=== PATIENT | female | born 1985 | race Hispanic/Latino ===

== ENCOUNTER 2019-04-03 17:00 | Emergency (ER) | payer OTHER, SELFPAY ==
[2019-04-03 17:31] LABS: Urine Blood 1+ (NEG); Urine Glucose NEGATIVE (NEG); Urine Protein NEGATIVE (NEG); Urine Specific Gravity 1.025 (1.005-1.030); Urine pH 6.5 (5.0-7.0)
[2019-04-03] MEDS ORDERED: ONDANSETRON 4 MG/2 ML VIAL ONE (17:52)
[2019-04-03] MEDS ORDERED: MORPHINE 4 MG/ML SYR ONE (17:52)
[2019-04-03] MEDS ORDERED: NA CHLORIDE 0.9% 1,000 ML ONE (17:52)
[2019-04-03 18:13] LABS: Absolute Lymphocytes (CBC) 1.5 K/uL (0.7-4.9); Basophils % 0.7 % (0-1.3); Hematocrit 40.6 % (36.0-45.0); Lymphocytes % 28.3 % (15.3-44.8); MPV 9.3 fL (7.6-11.3); RBC Red Blood Cell Count 4.83 M/uL (3.86-4.86)
[2019-04-03 18:35] LABS: ALT/SGPT 75 U/L (12-78); AST/SGOT 46 U/L (15-37); Albumin 3.9 g/dL (3.4-5.0); Alkaline Phosphatase 103 U/L (45-117); BUN Blood Urea Nitrogen 11 mg/dL (7-18); Bicarbonate 28 mmol/L (21-32); Bilirubin Direct 0.1 mg/dL (0-0.2); Bilirubin Total 0.4 mg/dL (0.2-1.0); Glucose Level 88 mg/dL (74-106); Lipase 178 U/L (73-393); Potassium 3.6 mmol/L (3.5-5.1); Protein, Total 8.4 g/dL (6.4-8.2); Sodium Level 140 mmol/L (136-145)
--- NOTE | 2019-04-03 20:26 | RAD REPORT ---
EXAM DESCRIPTION: CTAbdomen Pelvis W Contrast - 04/03/2019 8:18 pm CLINICAL HISTORY: Abdominal pain. abdominal pain COMPARISON: No comparisons TECHNIQUE: Biphasic CT imaging of the abdomen and pelvis was performed with 100 ml non-ionic IV cont rast. All CT scans are performed using dose optimization technique as appropriate and may include automated exposure control or mA/KV adjustment according to patient size. FINDINGS: The lung bases are clear. The liver is diffusely fatty. The spleen, pancreas, adrenal glands and kidneys are within normal limi ts. No bowel obstruction, free air, free fluid or abscess. The appendix is normal. No evidence of signi ficant lymphadenopathy. No suspicious bony findings. IMPRESSION: No acute intra-abdominal or pelvic finding.
--- NOTE | 2019-04-03 20:41 | EDPHYS ---
Physician Documentation [facility] Name: Patricia Quintero Age: 34 yrs Sex: Female : 1985 Arrival Date: 04/03/2019 Time: 17:02 Bed 15 Private MD: ED Physician Urbano Galvan HPI: 04/03 17:38 This 34 yrs old Female presents to ER via Ambulatory with complaints of jmm Abdominal Pain. 17:38 The patient presents with abdominal pain. Onset: The symptoms/episode began/occurred 1 jmm day(s) ago. The symptoms do not radiate. Associated signs and symptoms: Pertinent negatives: fever. The symptoms are described as achy, sharp. This is a 34 year old female with no chronic medical conditions that presents to the ED with complaints of right sided abdominal pain. Symptoms began yesterday. Denies fever, denies vomiting, denies diarrhea. . 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 - Social history:: Smoking status: Patient/guardian denies using tobacco. - Ebola Screening: : No symptoms or risks identified at this time. ROS: 17:38 Constitutional: Negative for fever, chills, and weight loss, Cardiovascular: Negative jmm for chest pain, palpitations, and edema, Respiratory: Negative for shortness of breath, cough, wheezing, and pleuritic chest pain. 17:38 Abdomen/GI: Positive for abdominal pain. 17:38 All other systems are negative. Exam: 17:38 Head/Face: atraumatic. Eyes: EOMI, no conjunctival erythema appreciated ENT: Moist jmm Mucus Membranes Neck: Trachea midline, Supple Chest/axilla: Normal chest wall appearance and motion. Cardiovascular: Regular rate and rhythm. No edema appreciated Respiratory: Normal respirations, no respiratory distress appreciated 17:38 Constitutional: The patient appears in no acute distress, alert, awake. 17:38 Abdomen/GI: Inspection: abdomen appears normal, Bowel sounds: normal, Palpation: soft, moderate abdominal tenderness, in the right lower quadrant. 17:38 Musculoskeletal/extremity: ROM: intact in all extremities. 17:38 Skin: Appearance: Color: normal in color. 17:38 Neuro: Orientation: is normal, Mentation: is normal, Memory: is normal. 17:38 Psych: Behavior/mood is pleasant, cooperative. Vital Signs: 17:08 BP 119 / 77; Pulse 92; Resp 16; Temp 98.4; Pulse Ox 100% on R/A; Weight 68.04 kg; la1 18:55 BP 109 / 71; Pulse 88; Resp 17 S; Pulse Ox 99% on R/A; ca1 19:30 BP 117 / 88; Pulse 79; Resp 18; Pulse Ox 97% on R/A; wh 20:57 BP 108 / 70; Pulse 70; Resp 18; Pulse Ox 98% on R/A; wh MDM: 17:38 Patient medically screened[address] [facility] 20:39 Data reviewed: vital signs, nurses notes. Counseling: I had a detailed discussion with elder the patient and/or guardian regarding: the historical points, exam findings, and any diagnostic results supporting the discharge/admit diagnosis, lab results, radiology results, the need for outpatient follow up, to return to the emergency department if symptoms worsen or persist or if there are any questions or concerns that arise at home. ED course: Pain is relieved in the ED. Labs unremarkable. Ct imaging negative for an acute process. Patient advised to follow up with GI and otherwise given strict return precautions. Patient understood and agrees with the plan of care. . 04/03 17:21 Order name: Urine Dipstick--Ancillary (enter results); Complete Time: 17:42 nj 04/03 17:21 Order name: Urine --Ancillary (enter results); Complete Time: 17:42 nj 04/03 17:41 Order name: Basic Metabolic Panel; Complete Time: 18:[address] [facility] 04/03 17:41 Order name: CBC with Diff; Complete Time: 18:[address] [facility] 04/03 17:41 Order name: Creatinine for Radiology; Complete Time: 18:[address] [facility] 04/03 17:41 Order name: Hepatic Function; Complete Time: 18:[address] [facility] 04/03 17:41 Order name: Lipase; Complete Time: 18:[address] [facility] 04/03 17:41 Order name: IV Saline Lock; Complete Time: 17:[address] [facility] 04/03 17:41 Order name: Labs collected and sent; Complete Time: 18:[address] [facility] 04/03 18:43 Order name: CT Abd/Pelvis - IV Contrast Only; Complete Time: 20:[address] [facility] Administered Medications: 17:56 Drug: NS 0.9% 1000 ml Route: IV; Rate: 1 bolus; Site: right antecubital; hb 21:00 Follow up: Response: No adverse reaction; IV Status: Completed infusion 17:56 Drug: morphine 4 mg Route: IVP; Site: right antecubital; hb 21:00 Follow up: Response: No adverse reaction; Pain is decreased; RASS: Alert and Calm (0) 17:56 Drug: Zofran 4 mg Route: IVP; Site: right antecubital; hb 21:01 Follow up: Response: No adverse reaction; Nausea is decreased Disposition: 04/04 07:11 Co-signature as Attending Physician, Urbano Galvan MD. rn Disposition: 04/03/19 20:40 Discharged to Home. Impression: Generalized abdominal pain. - Condition is Stable. - Discharge Instructions: Abdominal Pain, Adult. - Prescriptions for Ultracet 37.5- 325 mg Oral Tablet - take 1 tablet by ORAL route every 6 hours - for up to 5 days; do not exceed 8 tablets per day.; 20 tablet. - Medication Reconciliation Form, Thank You Letter, Antibiotic Education, Prescription Opioid Use form. - Follow up: Kaycee Malhotra MD; When: 2 - 3 days; Reason: Recheck today's complaints, Continuance of care, Re-evaluation by your physician. Signatures: Dispatcher [employer] EDMS Ivan Jones PA PA jmm Nieto, Roman, MD MD rn Attema, Lee RN ALEXANDREA [facility] Awilda Lo RN RN Caren Calero Corrections: (The following items were deleted from the chart) 04/03 21:01 20:40 04/03/2019 20:40 Discharged to Home. Impression: Generalized abdominal pain. Condition is Stable. Forms are Medication Reconciliation Form, Thank You Letter, Antibiotic Education, Prescription Opioid Use. Follow up: Kaycee Malhotra; When: 2 - 3 days; Reason: Recheck today's complaints, Continuance of care, Re-evaluation by your physician. elder
--- NOTE | 2019-04-03 20:41 | ER ---
Nurse's Notes [facility] Name: Patricia Quintero Age: 34 yrs Sex: Female : 1985 Arrival Date: 04/03/2019 Time: 17:02 Bed 15 Private MD: Diagnosis: Generalized abdominal pain Presentation: 04/03 17:09 Presenting complaint: Patient states: abd pain and bloating since yesterday. Transition la1 of care: patient was not received from another setting of care. Onset of symptoms was April 03, 2019. Risk Assessment: Do you want to hurt yourself or someone else? Patient reports no desire to harm self or others. Initial Sepsis Screen: Does the patient meet any 2 criteria? No. Patient's initial sepsis screen is negative. Does the patient have a suspected source of infection? No. Patient's initial sepsis screen is negative. Care prior to arrival: None. 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 - Social history:: Smoking status: Patient/guardian denies using tobacco. - Ebola Screening: : No symptoms or risks identified at this time. Screenin:15 Abuse screen: Denies threats or abuse. Denies injuries from another. Nutritional ca1 screening: No deficits noted. Tuberculosis screening: No symptoms or risk factors identified. Fall Risk None identified. Assessment: 17:15 General: Appears in no apparent distress. comfortable, Behavior is calm, cooperative, ca1 appropriate for age. Pain: Complains of pain in suprapubic area, right lower quadrant and left lower quadrant Pain currently is 8 out of 10 on a pain scale. Quality of pain is described as crampy, Pain began 1 day ago. Is intermittent. Neuro: Level of Consciousness is awake, alert, obeys commands, Oriented to person, place, time, situation, Appropriate for age. Cardiovascular: Heart tones S1 S2 present Capillary refill < 3 seconds Patient's skin is warm and dry. Respiratory: Airway is patent Respiratory effort is even, unlabored, Respiratory pattern is regular, symmetrical, Breath sounds are clear bilaterally. GI: Abdomen is round non-distended, Bowel sounds present X 4 quads. Abd is soft X 4 quads Abdomen is tender to palpation in right upper quadrant, left upper quadrant, right lower quadrant and left lower quadrant Patient currently denies nausea. : No deficits noted. No signs and/or symptoms were reported regarding the genitourinary system. EENT: No deficits noted. No signs and/or symptoms were reported regarding the EENT system. Derm: Skin is intact, is healthy with good turgor, Skin is pink, warm \T\ dry. Musculoskeletal: Circulation, motion, and sensation intact. Capillary refill < 3 seconds, Range of motion: intact in all extremities. 18:15 Reassessment: Patient appears in no apparent distress at this time. Patient and/or ca1 family updated on plan of care and expected duration. Pain level reassessed. Patient is alert, oriented x 3, equal unlabored respirations, skin warm/dry/pink. 18:55 Reassessment: Patient appears in no apparent distress at this time. Patient and/or ca1 family updated on plan of care and expected duration. Pain level reassessed. Patient is alert, oriented x 3, equal unlabored respirations, skin warm/dry/pink. 19:30 Reassessment: Patient appears in no apparent distress at this time. Patient and/or wh family updated on plan of care and expected duration. Pain level reassessed. Patient is alert, oriented x 3, equal unlabored respirations, skin warm/dry/pink. 20:56 Reassessment: Patient appears in no apparent distress at this time. No changes from previously documented assessment. Patient and/or family updated on plan of care and expected duration. Pain level reassessed. Patient is alert, oriented x 3, equal unlabored respirations, skin warm/dry/pink. Patient denies pain at this time. Patient states feeling better. Patient states symptoms have improved. Vital Signs: 17:08 BP 119 / 77; Pulse 92; Resp 16; Temp 98.4; Pulse Ox 100% on R/A; Weight 68.04 kg; la1 18:55 BP 109 / 71; Pulse 88; Resp 17 S; Pulse Ox 99% on R/A; ca1 19:30 BP 117 / 88; Pulse 79; Resp 18; Pulse Ox 97% on R/A; wh 20:57 BP 108 / 70; Pulse 70; Resp 18; Pulse Ox 98% on R/A; ED Course: 17:02 Patient arrived in ED. as 17:07 Arm band placed on left wrist. la1 17:09 Triage completed. la1 17:12 Yumiko Yusuf, RN is Primary Nurse. ca1 17:13 Ivan Jones PA is PHCP. jmm 17:13 Urbano Galvan MD is Attending Physician. m 17:15 Patient has correct armband on for positive identification. Bed in low position. Call ca1 light in reach. Side rails up X 1. Pulse ox on. NIBP on. Warm blanket given. 17:15 No provider procedures requiring assistance completed. ca1 18:09 Initial lab(s) drawn, by me, sent to lab. Inserted saline lock: 22 gauge in right mb4 antecubital area, using aseptic technique. Blood collected. 20:18 CT Abd/Pelvis - IV Contrast Only In Process Unspecified. EDMS 20:40 Kaycee Malhotra MD is Referral Physician. [facility] 20:48 Caren Calero is Primary Nurse. 21:00 IV discontinued, intact, bleeding controlled, No redness/swelling at site. Administered Medications: 17:56 Drug: NS 0.9% 1000 ml Route: IV; Rate: 1 bolus; Site: right antecubital; hb 21:00 Follow up: Response: No adverse reaction; IV Status: Completed infusion 17:56 Drug: morphine 4 mg Route: IVP; Site: right antecubital; hb 21:00 Follow up: Response: No adverse reaction; Pain is decreased; RASS: Alert and Calm (0) 17:56 Drug: Zofran 4 mg Route: IVP; Site: right antecubital; hb 21:01 Follow up: Response: No adverse reaction; Nausea is decreased Outcome: 20:40 Discharge ordered by . jmm 20:59 Discharged to home ambulatory, with family. 20:59 Condition: stable 20:59 Discharge instructions given to patient, family, Instructed on discharge instructions, follow up and referral plans. no drinking with medication, no driving heavy equipment, medication usage, POC Abdominal Pain Demonstrated understanding of instructions, follow-up care, medications, POC Prescriptions given X 1. 21:01 Patient left the ED. Signatures: Dispatcher [employer] Ivan Wagner PA PA jmm Martinez, Amelia as Ata Crain RN RN la1 Awilda Lo RN RN Caren Calero Kathi Lo 4 Yumiko Yusuf RN RN ca1 Corrections: (The following items were deleted from the chart) 20:57 20:56 Reassessment: Patient appears in no apparent distress at this time. Patient wh and/or family updated on plan of care and expected duration. Pain level reassessed. Patient is alert, oriented x 3, equal unlabored respirations, skin warm/dry/pink. Patient denies pain at this time. Patient states feeling better. Patient states symptoms have improved. wh
[2019-04-03 21:09] VITALS: TEMP 98.4
[2019-04-03 21:12] VITALS: BP 108/70; O2SAT 98
== END 2019-04-03 21:01 | disposition home or self-care (01) ==
LOC: ER 17:00
DX: R10.84 Generalized abdominal pain (principal)
CPT/HCPCS: 36415; 74177; 80048; 80076; 81003; 81025; 83690; 85025; 96361; 96374; 96375; 99284; J2405; J7030; Q9967

== ENCOUNTER 2019-05-21 04:45 | Emergency (ER) | payer SELFPAY ==
--- OUTSIDE RECORDS SUMMARY | 2019-05-21 04:47 | XMS REPORT ---
:1985 [facility] Address [address] [place] [address] Care Team Providers Name Role Phone Unavailable Unavailable Unavailable Problems This patient has no known problems. Allergies, Adverse Reactions, Alerts This patient has no known allergies or adverse reactions. Medications This patient has no known medications.
[2019-05-21] MEDS ORDERED: ONDANSETRON 4 MG/2 ML VIAL ONE (05:10)
[2019-05-21] MEDS ORDERED: NA CHLORIDE 0.9% 1,000 ML ONE (05:10)
[2019-05-21] MEDS ORDERED: MORPHINE 2 MG/ML SYR ONE (05:18)
[2019-05-21 05:36] LABS: Absolute Lymphocytes (CBC) 1.3 K/uL (0.7-4.9); Basophils % 0.3 % (0-1.3); Hematocrit 40.3 % (36.0-45.0); Lymphocytes % 13.9 % (15.3-44.8); MPV 9.6 fL (7.6-11.3)
[2019-05-21 05:44] LABS: Albumin 3.6 g/dL (3.4-5.0); Bilirubin Direct 0.1 mg/dL (0-0.2); Bilirubin Total 0.4 mg/dL (0.2-1.0); Potassium 3.7 mmol/L (3.5-5.1); Protein, Total 7.7 g/dL (6.4-8.2)
[2019-05-21 05:46] LABS: Urine Bacteria <20 /HPF (<20); Urine Culture Reflex Order REFLEXED; Urine Mucus 1+ /HPF (NONE SEEN)
[2019-05-21 05:47] LABS: Urine Blood TRACE (NEG); Urine Glucose NEGATIVE (NEG); Urine Protein NEGATIVE (NEG); Urine pH 5.5 (5.0-7.0)
[2019-05-21] MEDS ORDERED: MAGNE/ALUM HYDROXD 30 ML UCUP ONE (05:58)
[2019-05-21] MEDS ORDERED: LIDOCAINE VISCOUS 2% SOLN 15 ML UDC ONE (05:59)
--- NOTE | 2019-05-21 06:51 | ER ---
Nurse's Notes [facility] Name: Patricia Quintero Age: 34 yrs Sex: Female : 1985 Arrival Date: 05/21/2019 Time: 04:47 Bed 5 Private MD: Diagnosis: Other viral enteritis Presentation: 05/21 05:03 Presenting complaint: Patient states: Abdominal pain radiating to back that began lp1 suddenly at 2300, vomiting and diarrhea. Transition of care: patient was not received from another setting of care. Onset of symptoms was May 20, 2019 at 23:00. Risk Assessment: Do you want to hurt yourself or someone else? Patient reports no desire to harm self or others. Initial Sepsis Screen: Does the patient meet any 2 criteria? No. Patient's initial sepsis screen is negative. Does the patient have a suspected source of infection? No. Patient's initial sepsis screen is negative. Care prior to arrival: None. 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 - Social history:: Smoking status: Patient/guardian denies using tobacco. - Ebola Screening: : No symptoms or risks identified at this time. Screenin:14 Abuse screen: Denies threats or abuse. Denies injuries from another. Nutritional lp1 screening: No deficits noted. Tuberculosis screening: No symptoms or risk factors identified. Fall Risk None identified. Assessment: 05:13 General: Appears uncomfortable, Behavior is appropriate for age. Pain: Complains of lp1 pain in epigastric area, right upper quadrant and left upper quadrant Pain radiates to back Pain currently is 10 out of 10 on a pain scale. Quality of pain is described as sharp. Neuro: Level of Consciousness is awake, alert, obeys commands, Oriented to person, place, time, situation. Cardiovascular: Patient's skin is warm and dry. Respiratory: Respiratory effort is even, unlabored. GI: Abdomen is non-distended, Bowel sounds present X 4 quads. Abdomen is tender to palpation in epigastric area, right upper quadrant and left upper quadrant Reports diarrhea, nausea, vomiting. : No signs and/or symptoms were reported regarding the genitourinary system. EENT: No signs and/or symptoms were reported regarding the EENT system. Derm: Skin is pink, warm \T\ dry. Musculoskeletal: No deficits noted. 05:50 Reassessment: Patient states no relief from pain medication administered; continued lp1 abdominal pain; nausea decreased at this time. 06:51 Reassessment: Patient appears in no apparent distress at this time. Patient states lp1 feeling better. Vital Signs: 05:04 BP 130 / 97; Pulse 91; Resp 18; Temp 97.8(O); Pulse Ox 96% on R/A; Weight 63.5 kg; lp1 Height 5 ft. 3 in. (160.02 cm); Pain 10/10; 06:00 BP 118 / 87; Pulse 67; Resp 18; Pulse Ox 99% on R/A; lp1 07:08 BP 109 / 82; Pulse 68; Resp 18; Pulse Ox 98% on R/A; lp1 05:04 Body Mass Index 24.80 (63.50 kg, 160.02 cm) lp1 ED Course: 04:47 Patient arrived in ED. ag3 05:00 Dhiraj Carter MD is Attending Physician. tw4 05:03 Sada Pringle, ALEXANDREA is Primary Nurse. lp1 05:04 Triage completed. lp1 05:05 Arm band placed on. lp1 05:15 Patient has correct armband on for positive identification. lp1 06:13 No provider procedures requiring assistance completed. lp1 07:08 IV discontinued, No redness/swelling at site. Pressure dressing applied. lp1 Administered Medications: 05:12 Drug: NS 0.9% 1000 ml Route: IV; Rate: 1 bolus; Site: right antecubital; lp1 07:08 Follow up: IV Status: Completed infusion; IV Intake: 1000ml lp1 05:12 Drug: Zofran 4 mg Route: IVP; Site: right antecubital; lp1 06:13 Follow up: Response: Nausea is decreased lp1 05:26 Drug: morphine 2 mg {Note: RASS 1.} Route: IVP; Site: right antecubital; lp1 06:13 Follow up: Response: No change in condition lp1 06:04 Drug: GI Cocktail with - (Phenobarbital-Belladonna 10 ml, Maalox Suspension 30 lp1 ml, Lidocaine Liquid 2 % 20 ml) Route: PO; 07:08 Follow up: Response: Marked relief of symptoms lp1 Intake: 07:08 IV: 1000ml; Total: 1000ml. lp1 Outcome: 06:50 Discharge ordered by . [email or web address] 07:08 Discharged to home ambulatory, with significant other. lp1 07:08 Condition: good 07:08 Discharge instructions given to patient, significant other, Instructed on discharge instructions, follow up and referral plans. medication usage, Demonstrated understanding of instructions, follow-up care, medications, Prescriptions given X 2. 07:09 Patient left the ED. lp1 Signatures: Sada Pringle RN RN lp1 Dhiraj Carter MD MD tw4 Lamar Augustine 3
--- NOTE | 2019-05-21 06:51 | EDPHYS ---
Physician Documentation [facility] Name: Patricia Quitnero Age: 34 yrs Sex: Female : 1985 Arrival Date: 05/21/2019 Time: 04:47 Bed 5 Private MD: ED Physician Dhiraj Carter HPI: 05/21 05:01 This 34 yrs old Female presents to ER via Unassigned with complaints of tw4 Abdominal Pain. 05:01 The patient presents with abdominal pain in the epigastric area, in the upper abdomen. tw4 Onset: The symptoms/episode began/occurred 6 hour(s) ago. The symptoms do not radiate. Associated signs and symptoms: Pertinent positives: nausea, vomiting, and diarrhea, nausea and vomiting, diarrhea, nausea, vomiting blood, Pertinent negatives: anorexia, blood in stools, chest pain, constipation, dysuria, fever, headache, hematuria, palpitations, shortness of breath, vaginal discharge, vomiting blood. The symptoms are described as sharp. Modifying factors: The symptoms are alleviated by nothing, the symptoms are aggravated by nothing. Severity of pain: At its worst the pain was moderate in the emergency department the pain is unchanged. The patient has not experienced similar symptoms in the past. 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 - Social history:: Smoking status: Patient/guardian denies using tobacco. - Ebola Screening: : No symptoms or risks identified at this time. ROS: 05:01 Constitutional: Negative for fever, chills, and weight loss, Eyes: Negative for injury, tw4 pain, redness, and discharge, Cardiovascular: Negative for chest pain, palpitations, and edema, Respiratory: Negative for shortness of breath, cough, wheezing, and pleuritic chest pain. 05:01 Back: Negative for injury and pain, MS/Extremity: Negative for injury and deformity, Skin: Negative for injury, rash, and discoloration, Neuro: Negative for headache, weakness, numbness, tingling, and seizure. 05:01 Abdomen/GI: Positive for abdominal pain, nausea and vomiting, nausea, vomiting, and diarrhea, nausea, vomiting, abdominal cramps, Negative for anorexia, dysphagia, hematemesis, black/tarry stool, rectal pain, rectal bleeding, bowel incontinence. Exam: 05:01 Head/Face: Normocephalic, atraumatic. Eyes: Pupils equal round and reactive to light, tw4 extra-ocular motions intact. Lids and lashes normal. Conjunctiva and sclera are non-icteric and not injected. Cornea within normal limits. Periorbital areas with no swelling, redness, or edema. Chest/axilla: Normal chest wall appearance and motion. Nontender with no deformity. No lesions are appreciated. Cardiovascular: Regular rate and rhythm with a normal S1 and S2. No gallops, murmurs, or rubs. Normal PMI, no JVD. No pulse deficits. Respiratory: Lungs have equal breath sounds bilaterally, clear to auscultation and percussion. No rales, rhonchi or wheezes noted. No increased work of breathing, no retractions or nasal flaring. Abdomen/GI: Soft, non-tender, with normal bowel sounds. No distension or tympany. No guarding or rebound. No evidence of tenderness throughout. Back: No spinal tenderness. No costovertebral tenderness. Full range of motion. Skin: Warm, dry with normal turgor. Normal color with no rashes, no lesions, and no evidence of cellulitis. MS/ Extremity: Pulses equal, no cyanosis. Neurovascular intact. Full, normal range of motion. Neuro: Awake and alert, GCS 15, oriented to person, place, time, and situation. Cranial nerves II-XII grossly intact. Motor strength 5/5 in all extremities. Sensory grossly intact. Cerebellar exam normal. Normal gait. 05:01 Constitutional: The patient appears in obvious distress, mildly distressed, in obvious pain. Vital Signs: 05:04 BP 130 / 97; Pulse 91; Resp 18; Temp 97.8(O); Pulse Ox 96% on R/A; Weight 63.5 kg; lp1 Height 5 ft. 3 in. (160.02 cm); Pain 10/10; 06:00 BP 118 / 87; Pulse 67; Resp 18; Pulse Ox 99% on R/A; lp1 07:08 BP 109 / 82; Pulse 68; Resp 18; Pulse Ox 98% on R/A; lp1 05:04 Body Mass Index 24.80 (63.50 kg, 160.02 cm) lp1 MDM: 05:00 Patient medically screened. tw4 06:47 Differential diagnosis: appendicitis, gastritis, GI Bleed, Hepatitis. Data reviewed: tw4 vital signs, nurses notes. Data reviewed: lab test result(s), CBC, white blood cell count, hemoglobin, hematocrit, platelets, electrolytes, sodium, potassium, chloride, serum bicarbonate, BUN, creatinine, serum glucose, hepatic panel. Counseling: I had a detailed discussion with the patient and/or guardian regarding: the historical points, exam findings, and any diagnostic results supporting the discharge/admit diagnosis. Medication response: Zofran relieved the patient's nausea. Response to treatment: and as a result, I will discharge patient. Special discussion: I discussed with the patient/guardian in detail that at this point there is no indication for admission to the hospital. It is understood, however, that if the symptoms persist or worsen the patient needs to return immediately for re-evaluation. 05/21 05:00 Order name: Urine Microscopic Only tw4 05/21 05:00 Order name: Basic Metabolic Panel tw4 05/21 05:00 Order name: CBC with Diff; Complete Time: 06:49 tw4 05/21 06:49 Interpretation: Normal except: YASH% 76.6; LYM% 13.9. tw05/21 05:00 Order name: Creatinine for Radiology; Complete Time: 06:49 4 05/21 05:00 Order name: Hepatic Function; Complete Time: 06:49 tw4 05/21 06:49 Interpretation: Normal except: AST 49; GLOB 4.1; A/G 0.9. tw05/21 05:00 Order name: Lipase; Complete Time: 06:49 4 05/21 05:01 Order name: Urine Microscopic Only; Complete Time: 06:49 EDMS 05/21 06:49 Interpretation: Normal except: UWBC 5-10; URBC 5-10; SQEPI 10-20. 05/21 05:02 Order name: Basic Metabolic Panel; Complete Time: 06:49 EDMS 05/21 06:50 Interpretation: Normal except: GLUC 123; GFR 62. tw05/21 05:18 Order name: Urine Dipstick--Ancillary (enter results); Complete Time: 06:49 ar5 05/21 06:50 Interpretation: Normal except: UBLD TRACE; UESTR TRACE. tw4 05/21 05:18 Order name: Urine Culture ar5 05/21 05:00 Order name: Urine Dipstick-Ancillary (obtain specimen); Complete Time: 05:13 tw4 05/21 05:00 Order name: IV Saline Lock; Complete Time: 05:13 tw4 05/21 05:00 Order name: Labs collected and sent; Complete Time: 05:13 tw4 05/21 05:00 Order name: Urine Test (obtain specimen); Complete Time: 05:13 tw4 Administered Medications: 05:12 Drug: NS 0.9% 1000 ml Route: IV; Rate: 1 bolus; Site: right antecubital; lp1 07:08 Follow up: IV Status: Completed infusion; IV Intake: 1000ml lp1 05:12 Drug: Zofran 4 mg Route: IVP; Site: right antecubital; lp1 06:13 Follow up: Response: Nausea is decreased lp1 05:26 Drug: morphine 2 mg {Note: RASS 1.} Route: IVP; Site: right antecubital; lp1 06:13 Follow up: Response: No change in condition lp1 06:04 Drug: GI Cocktail with - (Phenobarbital-Belladonna 10 ml, Maalox Suspension 30 lp1 ml, Lidocaine Liquid 2 % 20 ml) Route: PO; 07:08 Follow up: Response: Marked relief of symptoms lp1 Disposition: 05/21/19 06:50 Discharged to Home. Impression: Other viral enteritis. - Condition is Stable. - Discharge Instructions: Food Choices to Help Relieve Diarrhea, Adult, Diarrhea, Adult, Viral Gastroenteritis, Adult, Viral Gastroenteritis, Adult, [id number]. - Prescriptions for Zofran 4 mg Oral Tablet - take 1 tablet by ORAL route every 12 hours As needed; 6 tablet. Lomotil 2.5- 0.025 mg Oral Tablet - take 2 tablet by ORAL route once daily As needed; 20 tablet. - Medication Reconciliation Form, Thank You Letter, Antibiotic Education, Prescription Opioid Use form. - Follow up: Private Physician; When: Upon discharge from the Emergency Department; Reason: If symptoms return, Recheck today's complaints, Continuance of care. - Problem is new. - Symptoms have improved. Signatures: Dispatcher [employer] EDMS Sada Pringle RN RN lp1 Dhiraj Carter MD MD tw4 Corrections: (The following items were deleted from the chart) 07:09 06:50 05/21/2019 06:50 Discharged to Home. Impression: Other viral enteritis. Condition lp1 is Stable. Forms are Medication Reconciliation Form, Thank You Letter, Antibiotic Education, Prescription Opioid Use. Follow up: Private Physician; When: Upon discharge from the Emergency Department; Reason: If symptoms return, Recheck today's complaints, Continuance of care. Problem is new. Symptoms have improved. tw4
[2019-05-21 07:22] VITALS: TEMP 97.8
[2019-05-21 07:25] VITALS: BP 109/82; O2SAT 98
== END 2019-05-21 07:09 | disposition home or self-care (01) ==
LOC: ER 04:45
DX: A08.39 Other viral enteritis (principal)
CPT/HCPCS: 36415; 80048; 80076; 81003; 81015; 83690; 85025; 87086; 87088; 96361; 96374; 96375; 99283; J2270; J2405; J7030

== ENCOUNTER 2019-08-20 18:45 | Emergency (ER) | payer SELFPAY ==
--- OUTSIDE RECORDS SUMMARY | 2019-08-20 18:46 | XMS REPORT ---
:1985 [facility] [address] [place] [address] Care Team Providers Name Role Phone Unavailable Unavailable Unavailable Problems This patient has no known problems. Allergies, Adverse Reactions, Alerts This patient has no known allergies or adverse reactions. Medications This patient has no known medications.
[2019-08-20] MEDS ORDERED: LEVALBUTEROL 1.25 MG/3 ML NEB ONE (19:24)
--- NOTE | 2019-08-20 19:51 | RAD REPORT ---
EXAM DESCRIPTION: RAD - Chest Single View - 08/20/2019 7:46 pm CLINICAL HISTORY: cough, shortness of breath Chest pain. COMPARISON: No comparisons FINDINGS: Portable technique limits examination quality. The lungs are grossly clear. The heart is normal in size. No displaced fractures. IMPRESSION: No acute intrathoracic process suspected.
[2019-08-20] MEDS ORDERED: ONDANSETRON 4 MG (ODT) TAB ONE (20:05)
--- NOTE | 2019-08-20 21:09 | EDPHYS ---
Physician Documentation [facility] Name: Patricia Quintero Age: 34 yrs Sex: Female : 1985 Arrival Date: 08/20/2019 Time: 18:48 Bed 25 Private MD: ED Physician Derrick Sabillon HPI: 08/19 19:14 This 34 yrs old Female presents to ER via Ambulatory with complaints of Sore jmm Throat, Cough. 19:14 The patient presents with sore throat. Onset: The symptoms/episode began/occurred jmm gradually, 3 day(s) ago. Modifying factors: The symptoms are alleviated by nothing, the symptoms are aggravated by nothing. Associated signs and symptoms: Pertinent positives: shortness of breath Sore throat. This is a 34 year old female with a history of asthma that presents to the ED with complaints of sore throat, cough, beginning 3 days ago with sob. Denies fever, denies recent travel, denies infectious exposure. . GENERAL CLEANER: 19:27 LMP 07/28/2019 rr5 Historical: - Allergies: 18:55 No Known Allergies; ll1 - PMHx: 18:55 ectopic ; Ovarian cyst; Asthma; ll1 - PSHx: 18:55 None; ll1 - Immunization history:: Flu vaccine is not up to date. - Social history:: Smoking status: unknown. ROS: 19:14 Constitutional: Negative for fever, chills, and weight loss, Cardiovascular: Negative jmm for chest pain, palpitations, and edema. 19:14 ENT: Positive for sore throat. 19:14 Respiratory: Positive for cough, shortness of breath, wheezing. 19:14 All other systems are negative. Exam: 19:14 Constitutional: This is a well developed, well nourished patient who is awake, alert, jmm and in no acute distress. Head/Face: atraumatic. Eyes: EOMI, no conjunctival erythema appreciated 19:14 Neck: Trachea midline, Supple Chest/axilla: Normal chest wall appearance and motion. 19:14 Abdomen/GI: Non distended, soft Back: Normal ROM Skin: General appearance color normal MS/ Extremity: Moves all extremities, no obvious deformities appreciated, no edema noted to the lower extremities Neuro: Awake and alert, normal gait Psych: Behavior is normal, Mood is normal, Patient is cooperative and pleasant 19:14 ENT: Posterior pharynx: erythema, that is moderate. 19:14 Cardiovascular: Rate: normal, Rhythm: regular. 19:14 Respiratory: the patient does not display signs of respiratory distress, Respirations: normal, Breath sounds: wheezing: that is mild, is heard in the right posterior upper lobe. Vital Signs: 18:53 BP 125 / 94; Pulse 86; Resp 17; Temp 98.0; Pulse Ox 99% ; Pain 8/10; ll1 20:04 BP 116 / 62; Pulse 110; Resp 19; Temp 98.2; Pulse Ox 99% on R/A; rr5 21:00 BP 110 / 72; Pulse 91; Resp 18; Temp 98.1(O); Pulse Ox 99% on R/A; vc MDM: 19:09 Patient medically screened. [facility] 21:07 Data reviewed: vital signs, nurses notes. Counseling: I had a detailed discussion with [facility] the patient and/or guardian regarding: the historical points, exam findings, and any diagnostic results supporting the discharge/admit diagnosis, lab results, radiology results, the need for outpatient follow up, to return to the emergency department if symptoms worsen or persist or if there are any questions or concerns that arise at home. ED course: Patient is alert and non toxic in appearance in the ED. Patient is advised to follow up with PCP and otherwise given strict return precautions. Patient understood and agrees with the plan of care. . 08/19 19:11 Order name: Strep; Complete Time: 19:45 [facility] 08/19 19:11 Order name: Flu; Complete Time: 20:58 [facility] 08/19 19:11 Order name: Chest Single View XRAY; Complete Time: 19:58 [facility] 08/19 19:59 Order name: Throat Culture EDMS Administered Medications: 19:23 Drug: Xopenex (3) 1.25 mg Route: Inhalation; rr5 20:30 Follow up: Response: No adverse reaction rr5 20:06 Drug: Ondansetron (Zofran) 4 mg Route: PO; rr5 21:22 Follow up: Response: No adverse reaction rr5 Disposition: 08/20 17:12 Co-signature as Attending Physician, Derrick Sabillon MD Did not see or evaluate patient. ps1 Signature for administrative purposes. . Disposition: 08/20/19 21:08 Discharged to Home. Impression: Acute upper respiratory infection, unspecified, Acute pharyngitis. - Condition is Stable. - Discharge Instructions: Pharyngitis, Upper Respiratory Infection, Adult. - Prescriptions for Zithromax Z- Golden 250 mg Oral Tablet - take 1 tablet by ORAL route as directed for 5 days Day 1 - take two (2) tablets one time. Day 2, 3, 4 , 5 take one (1) tablet once daily.; 6 tablet. Medrol (Golden) 4 mg Oral Tablets, Dose Pack - take 1 tablet by ORAL route as directed - follow package instructions; 1 packet. Albuterol Sulfate 90 mcg/actuation - inhale 1-2 puff by INHALATION route every 4-6 hours; 1 Inhaler. - Medication Reconciliation Form, Thank You Letter, Antibiotic Education, Prescription Opioid Use form. - Follow up: Private Physician; When: 2 - 3 days; Reason: Recheck today's complaints, Continuance of care, Re-evaluation by your physician. Signatures: Dispatcher [employer] EDMS Ivan Jones PA PA jmm Singer, Phillip, MD MD ps1 Hamilton Huitron, RN RN rr5 Karen Junior RN RN vc Lewis, Lynsay, RN RN ll1 Corrections: (The following items were deleted from the chart) 08/19 21:25 21:08 08/20/2019 21:08 Discharged to Home. Impression: Acute upper respiratory vc infection, unspecified; Acute pharyngitis. Condition is Stable. Forms are Medication Reconciliation Form, Thank You Letter, Antibiotic Education, Prescription Opioid Use. Follow up: Private Physician; When: 2 - 3 days; Reason: Recheck today's complaints, Continuance of care, Re-evaluation by your physician. elder
--- NOTE | 2019-08-20 21:09 | ER ---
Nurse's Notes [facility] Name: Patricia Quintero Age: 34 yrs Sex: Female : 1985 Arrival Date: 08/20/2019 Time: 18:48 Bed 25 Private MD: Diagnosis: Acute upper respiratory infection, unspecified;Acute pharyngitis Presentation: 08/19 18:53 Chief complaint: Patient states: Sore throat for 3 days. + cough today. No known fever. ll1 Vomited once this am. + body aches. + SOB at times. Coronavirus screen: The patient has NOT traveled to a country currently being monitored by the CDC within the last 14 days. Proceed with normal triage procedures. Ebola Screen: Patient denies travel to an Ebola-affected area in the 21 days before illness onset. Initial Sepsis Screen: Does the patient meet any 2 criteria? No. Patient's initial sepsis screen is negative. Risk Assessment: Do you want to hurt yourself or someone else? Patient reports no desire to harm self or others. 18:53 Method Of Arrival: Ambulatory [facility] 18:53 Acuity: REUBEN 4 1 19:27 Initial Sepsis Screen: Does the patient have a suspected source of infection? Yes: rr5 Productive cough/pneumonia. Onset of symptoms was August 17, 2019. 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 - Social history:: Smoking status: unknown. Screenin:25 Abuse screen: Denies threats or abuse. Denies injuries from another. Nutritional rr5 screening: No deficits noted. Tuberculosis screening: No symptoms or risk factors identified. Fall Risk None identified. Total Carmen Fall Scale indicates No Risk (0-24 pts). Assessment: 19:20 General: Appears in no apparent distress. comfortable, Behavior is calm, cooperative, rr5 appropriate for age, Smells of. Pain: Complains of pain in body Pain does not radiate. Pain Quality of pain is described as aching, Pain began gradually, Is intermittent. Neuro: Level of Consciousness is awake, alert, obeys commands, Oriented to person, place, time, situation. Cardiovascular: Capillary refill < 3 seconds Patient's skin is warm and dry. Respiratory: Reports shortness of breath cough that is Airway is patent Respiratory effort is even, unlabored, Respiratory pattern is regular, symmetrical, GI: : No signs and/or symptoms were reported regarding the genitourinary system. EENT: Throat is clear is pink with gag reflex present, Reports pain in throat when swallowing. Derm: Skin is intact, is healthy with good turgor, Skin temperature is warm. Musculoskeletal: Circulation, motion, and sensation intact. Capillary refill < 3 seconds, Reports pain in body. 20:00 Reassessment: Patient and/or family updated on plan of care and expected duration. Pain vc level reassessed. Patient is alert, oriented x 3, equal unlabored respirations, skin warm/dry/pink. 21:00 Reassessment: Patient and/or family updated on plan of care and expected duration. Pain vc level reassessed. Patient is alert, oriented x 3, equal unlabored respirations, skin warm/dry/pink. Patient states feeling better. Patient states symptoms have improved. Vital Signs: 18:53 BP 125 / 94; Pulse 86; Resp 17; Temp 98.0; Pulse Ox 99% ; Pain 8/10; ll1 20:04 BP 116 / 62; Pulse 110; Resp 19; Temp 98.2; Pulse Ox 99% on R/A; rr5 21:00 BP 110 / 72; Pulse 91; Resp 18; Temp 98.1(O); Pulse Ox 99% on R/A; vc ED Course: 18:48 Patient arrived in ED. mr 18:55 Triage completed. ll1 18:55 Arm band placed on Patient placed in an exam room. 1 19:01 Ivan Jones PA is PHCP. [facility] 19:01 Derrick Sabillon MD is Attending Physician. [facility] 19:19 Karen Junior, ALEXANDREA is Primary Nurse. vc 19:19 Flu Sent. vc 19:19 Strep Sent. vc 19:26 Patient has correct armband on for positive identification. Bed in low position. Call rr5 light in reach. 19:46 Chest Single View XRAY In Process Unspecified. EDMS 21:23 No provider procedures requiring assistance completed. Patient did not have IV access rr5 during this emergency room visit. Administered Medications: 19:23 Drug: Xopenex (3) 1.25 mg Route: Inhalation; rr5 20:30 Follow up: Response: No adverse reaction rr5 20:06 Drug: Ondansetron (Zofran) 4 mg Route: PO; rr5 21:22 Follow up: Response: No adverse reaction rr5 Outcome: 21:08 Discharge ordered by . elder 21:23 Discharged to home ambulatory. rr5 21:23 Condition: stable 21:23 Discharge instructions given to patient, family, Instructed on discharge instructions, follow up and referral plans. medication usage, Demonstrated understanding of instructions, follow-up care, medications, Prescriptions given X 3. 21:25 Patient left the ED. vc Signatures: Dispatcher [employer] EDMS Ivan Jones PA PA jmm Rivera, Mary mr Roque, Raymond RN RN rr5 Karen Junior RN RN vc Alexander Huggins RN RN ll1
[2019-08-20 21:31] VITALS: O2SAT 99
[2019-08-20 21:34] VITALS: BP 110/72; TEMP 98.1
== END 2019-08-20 21:25 | disposition home or self-care (01) ==
LOC: ER 18:45
DX: J06.9 Acute upper respiratory infection, unspecified (principal); J02.9 Acute pharyngitis, unspecified
CPT/HCPCS: 71045; 87070; 87081; 87804; 99284

== ENCOUNTER 2020-04-12 18:17 | Emergency (ER) | payer SELFPAY ==
[2020-04-12] MEDS ORDERED: NA CHLORIDE 0.9% 1,000 ML ONE (20:36)
[2020-04-12] MEDS ORDERED: ONDANSETRON 4 MG/2 ML VIAL ONE (20:36)
[2020-04-12] MEDS ORDERED: FAMOTIDINE 20 MG/2 ML VIAL IV ONE (20:36)
[2020-04-12] MEDS ORDERED: DICYCLOMINE HCL 20 MG/2 ML AMP IM ONE (20:36)
[2020-04-12 20:54] LABS: Absolute Lymphocytes (CBC) 0.9 K/uL (0.7-4.9); Basophils % 0.4 % (0-1.3); Hematocrit 44.4 % (36.0-45.0); Lymphocytes % 11.6 % (15.3-44.8); MPV 9.4 fL (7.6-11.3); RBC Red Blood Cell Count 5.35 M/uL (3.86-4.86); Urine Blood 2+ (NEG); Urine Glucose NEGATIVE (NEG); Urine Protein NEGATIVE (NEG); Urine Specific Gravity 1.025 (1.005-1.030); Urine pH 5.5 (5.0-7.0)
[2020-04-12 20:54] LABS: Urine Specific Gravity 1.015 (1.005-1.030)
[2020-04-12 21:01] LABS: Urine Blood 3+ (NEG); Urine Glucose NEGATIVE (NEG); Urine Protein 1+ (NEG); Urine Specific Gravity 1.015 (1.005-1.030); Urine pH 8.5 (5.0-7.0)
[2020-04-12 21:14] LABS: Urine Bacteria 20-50 /HPF (<20)
[2020-04-12 21:15] LABS: Urine Culture Reflex Order NOT NEEDED; Urine Mucus HEAVY /HPF (NONE SEEN)
[2020-04-12 21:15] LABS: Bilirubin Direct 0.2 mg/dL (0-0.2); Bilirubin Total 0.9 mg/dL (0.2-1.0); Potassium 3.9 mmol/L (3.5-5.1); Protein, Total 8.9 g/dL (6.4-8.2)
--- NOTE | 2020-04-12 22:13 | ER ---
Nurse's Notes [facility] Name: Patricia Quintero Age: 35 yrs Sex: Female : 1985 Arrival Date: 04/12/2020 Time: 18:21 Bed 26 Private MD: Diagnosis: Nausea and vomiting;Diarrhea, unspecified Presentation: 04/12 18:37 Chief complaint: Spouse and/or significant other states: : diarrhea since 0500 ca1 today, non-stop, watery. N/V, epigastric pain. Denies fever. Coronavirus screen: Client denies travel out of the [place] in the last 14 days. nausea, Client presents with at least one sign or symptom that may indicate coronavirus-19. Standard/surgical mask placed on the client. Provider contacted for isolation considerations. The client denies any previous COVID testing. Ebola Screen: Patient negative for fever greater than or equal to 101.5 degrees Fahrenheit, and additional compatible Ebola Virus Disease symptoms Patient denies exposure to infectious person. Patient denies travel to an Ebola-affected area in the 21 days before illness onset. No symptoms or risks identified at this time. Initial Sepsis Screen: Does the patient meet any 2 criteria? No. Patient's initial sepsis screen is negative. Does the patient have a suspected source of infection? No. Patient's initial sepsis screen is negative. Risk Assessment: Do you want to hurt yourself or someone else? Patient reports no desire to harm self or others. Onset of symptoms was April 12, 2020 at 05:00. 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 - Social history:: Smoking status: Patient denies any tobacco usage or history of. Screenin:30 Abuse screen: Denies threats or abuse. Nutritional screening: No deficits noted. bb Tuberculosis screening: No symptoms or risk factors identified. Fall Risk None identified. Assessment: 20:30 General: Appears uncomfortable, Behavior is cooperative, anxious. Pain: Complains of bb pain in abdomen. Neuro: Level of Consciousness is awake, alert, obeys commands, Oriented to person, place, time, situation. Cardiovascular: No deficits noted. Respiratory: Airway is patent Respiratory effort is even, unlabored, Respiratory pattern is regular. GI: Abdomen is distended, Reports lower abdominal pain, upper abdominal pain, diarrhea, vomiting. Derm: Skin is pink, warm \T\ dry. Musculoskeletal: Circulation, motion, and sensation intact. 21:27 Reassessment: Patient is alert, oriented x 3, equal unlabored respirations, skin bb warm/dry/pink. pt states she is feeling better pain has decreased, spouse at bedside. 22:25 Reassessment: No changes from previously documented assessment. Patient and/or family tl1 updated on plan of care and expected duration. Pain level reassessed. Patient is alert, oriented x 3, equal unlabored respirations, skin warm/dry/pink. Patient states feeling better. Patient states symptoms have improved. Vital Signs: 18:37 BP 114 / 84; Pulse 110; Resp 18 S; Temp 97.1(TE); Pulse Ox 100% on R/A; Weight 68.04 kg ca1 (R); Height 5 ft. 0 in. (152.40 cm) (R); Pain 10/10; 21:26 BP 99 / 68; Pulse 87; Resp 16 S; Pulse Ox 100% on R/A; bb 22:26 BP 103 / 79; Pulse 95; Resp 16; Temp 98.2; Pulse Ox 99% on R/A; Pain 2/10; tl1 18:37 Body Mass Index 29.29 (68.04 kg, 152.40 cm) ca1 ED Course: 18:21 Patient arrived in ED. mr 18:39 Triage completed. ca1 18:39 Arm band placed on right wrist. ca1 19:51 Des Wilcox PA is PHCP. cp 19:51 Urbano Galvan MD is Attending Physician. cp 19:55 Urine collected: clean catch specimen, clear, suzanne colored. jp3 20:07 Urine Culture Sent. jp3 20:07 Urine Microscopic Only Sent. jp3 20:29 Missed attempt(s): 20 gauge in left antecubital area. Bleeding controlled, band aid bb applied, catheter tip intact. 20:30 Patient has correct armband on for positive identification. Placed in gown. Bed in low bb position. Call light in reach. Side rails up X 1. Adult w/ patient. Pulse ox on. NIBP on. Warm blanket given. 20:30 Initial lab(s) drawn, by me, sent to lab. Inserted saline lock: 20 gauge in right bb antecubital area, using aseptic technique. Blood collected. 22:09 US Abdomen Limited: RUQ In Process Unspecified. EDMS 22:26 No provider procedures requiring assistance completed. IV discontinued, intact, tl1 bleeding controlled, No redness/swelling at site. Pressure dressing applied. Administered Medications: 20:30 Drug: Bentyl 20 mg Route: IM; Site: left gluteus; bb 21:27 Follow up: Response: No adverse reaction; Pain is decreased bb 20:35 Drug: Zofran (Ondansetron) 4 mg Route: IVP; Site: right antecubital; bb 21:27 Follow up: Response: No adverse reaction bb 20:35 Drug: NS 0.9% 1000 ml Route: IV; Rate: 1 bolus; Site: right antecubital; bb 21:27 Follow up: IV Status: Completed infusion; IV Intake: 1000ml bb 22:25 Follow up: IV Status: Completed infusion; IV Intake: 1000ml tl1 20:38 Drug: Pepcid 20 mg Route: IVP; Site: right antecubital; bb 21:27 Follow up: Response: No adverse reaction bb Point of Care Testing: Urine : 20:06 hCG Reading: Negative; Control Reading: Positive; jp3 Intake: 21:27 IV: 1000ml; Total: 1000ml. bb 22:25 IV: 1000ml; Total: 2000ml. tl1 Outcome: 22:12 Discharge ordered by . cp 22:27 Discharged to home ambulatory, with family. tl1 22:27 Condition: good 22:27 Discharge instructions given to patient, family, Instructed on discharge instructions, follow up and referral plans. medication usage, Demonstrated understanding of instructions, follow-up care, medications, Prescriptions given X 3. 22:27 Patient left the ED. tl1 Signatures: Dispatcher [facility] Mary Ellen Mcclelland Brenda RN RN bb Arianna Kaba RN RN tl1 Des Wilcox PA PA Aung Mckeon jp3 Acob, Yumiko, RN RN ca1
--- NOTE | 2020-04-12 22:13 | EDPHYS ---
Physician Documentation [facility] Name: Patricia Quintero Age: 35 yrs Sex: Female : 1985 Arrival Date: 04/12/2020 Time: 18:21 Bed 26 Private MD: ED Physician Urbano Galvan HPI: 04/12 20:00 This 35 yrs old Female presents to ER via Ambulatory with complaints of cp Vomiting/Diarrhea. 20:00 The patient presents to the emergency department with nausea, that is moderate, cp vomiting, that is intermittent, diarrhea, that is continuous. 20:00 Onset: The symptoms/episode began/occurred this morning. Possible causes: bad food cp exposure. Associated signs and symptoms: Pertinent positives: abdominal pain, Pertinent negatives: constipation, dysuria, fever, GI bleeding. Severity of symptoms: in the emergency department the symptoms are unchanged despite home interventions. 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 - Social history:: Smoking status: Patient denies any tobacco usage or history of. ROS: 20:05 Constitutional: Negative for body aches, chills, fever. cp 20:05 Eyes: Negative for injury, pain, redness, and discharge. cp 20:05 ENT: Negative for ear pain, sore throat, difficulty swallowing, difficulty handling secretions. 20:05 Cardiovascular: Negative for chest pain, palpitations. 20:05 Respiratory: Negative for cough, shortness of breath, wheezing. 20:05 Abdomen/GI: Positive for abdominal pain, nausea, vomiting, and diarrhea, Negative for hematemesis, black/tarry stool, rectal bleeding. 20:05 Back: Negative for radiated pain. 20:05 : Negative for urinary symptoms. 20:05 Neuro: Negative for dizziness, weakness. 20:05 All other systems are negative. Exam: 20:10 Constitutional: The patient appears in no acute distress, alert, awake, non-toxic, well cp developed, well nourished, uncomfortable. 20:10 Head/Face: Normocephalic, atraumatic. cp 20:10 Eyes: Periorbital structures: appear normal, Conjunctiva: normal, no exudate, no injection, Sclera: no appreciated abnormality, Lids and lashes: appear normal, bilaterally. 20:10 ENT: External ear(s): are unremarkable, Nose: is normal, Mouth: Lips: moist, Oral mucosa: moist, Posterior pharynx: Airway: no evidence of obstruction, patent. 20:10 Chest/axilla: Inspection: normal, Palpation: is normal, no crepitus, no tenderness. 20:10 Cardiovascular: Rate: tachycardic, Rhythm: regular. 20:10 Respiratory: the patient does not display signs of respiratory distress, Respirations: normal, no use of accessory muscles, no retractions, labored breathing, is not present, Breath sounds: are clear throughout, no decreased breath sounds. 20:10 Abdomen/GI: Inspection: abdomen appears normal, Bowel sounds: active, all quadrants, Palpation: soft, in all quadrants, moderate abdominal tenderness, in the right upper quadrant and left upper quadrant, rebound tenderness, is not appreciated, voluntary guarding, is elicited in the right upper quadrant and left upper quadrant. 20:10 Back: pain, is absent, ROM is normal. Vital Signs: 18:37 BP 114 / 84; Pulse 110; Resp 18 S; Temp 97.1(TE); Pulse Ox 100% on R/A; Weight 68.04 kg ca1 (R); Height 5 ft. 0 in. (152.40 cm) (R); Pain 10/10; 21:26 BP 99 / 68; Pulse 87; Resp 16 S; Pulse Ox 100% on R/A; bb 22:26 BP 103 / 79; Pulse 95; Resp 16; Temp 98.2; Pulse Ox 99% on R/A; Pain 2/10; tl1 18:37 Body Mass Index 29.29 (68.04 kg, 152.40 cm) ca1 MDM: 20:00 Patient medically screened. cp 20:20 Differential diagnosis: gastritis, cholecystitis, pancreatitis, appendicitis, viral cp gastroenteritis, gastroenteritis. 22:10 Data reviewed: vital signs, nurses notes, lab test result(s), radiologic studies, cp ultrasound, and as a result, I will discharge patient. 22:11 Counseling: I had a detailed discussion with the patient and/or guardian regarding: the cp historical points, exam findings, and any diagnostic results supporting the discharge/admit diagnosis, lab results, radiology results, to return to the emergency department if symptoms worsen or persist or if there are any questions or concerns that arise at home. 22:11 Response to treatment: the patient's symptoms have markedly improved after treatment, cp patient is well hydrated. Special discussion: Based on the patient's Hx, exam, and Dx evaluation, there is no indication for emergent surgery or inpatient Tx. It is understood by the patient/guardian that if the Sx's persist or worsen they need to return immediately for re-evaluation. ED course: VSS. Nausea and abdominal pain improved. Patient tolerating po fluids. Will discharge to home for continued monitoring. 04/12 18:47 Order name: Urine Culture [facility] 04/12 18:47 Order name: Urine Microscopic Only [facility] 04/12 18:48 Order name: Urine Culture [facility] 04/12 18:48 Order name: Urine Microscopic Only; Complete Time: 21:28 [facility] 04/12 20:03 Order name: Basic Metabolic Panel; Complete Time: 21:28 04/12 20:03 Order name: CBC with Diff; Complete Time: 21:28 04/12 22:08 Interpretation: Normal except: RBC 5.35; HGB 15.3; YASH% 82.4; LYM% 11.6. 04/12 20:03 Order name: Hepatic Function; Complete Time: 21:28 04/12 20:03 Order name: Lipase; Complete Time: 21:28 04/12 20:35 Order name: Urine --Ancillary (enter results); Complete Time: 21:28 [facility] 04/12 20:35 Order name: Urine Dipstick--Ancillary (enter results); Complete Time: 21:28 [facility] 04/12 20:51 Order name: Urine --Ancillary (enter results); Complete Time: 21:28 [facility] 04/12 20:52 Order name: Urine Dipstick--Ancillary (enter results); Complete Time: 21:28 [facility] 04/12 22:08 Interpretation: Normal except: UBLD 3+; UPH 8.5; UPROT 1+; UESTR 3+. 04/12 21:29 Order name: US Abdomen Limited: RUQ 04/12 18:47 Order name: Urine Test (obtain specimen); Complete Time: 20:07 snw 04/12 18:47 Order name: Urine Dipstick-Ancillary (obtain specimen); Complete Time: 20:07 snw 04/12 20:03 Order name: IV Saline Lock; Complete Time: 20:42 cp 04/12 20:03 Order name: Labs collected and sent; Complete Time: 20:42 cp 04/12 22:08 Order name: PO challenge; Complete Time: 22:24 cp Administered Medications: 20:30 Drug: Bentyl 20 mg Route: IM; Site: left gluteus; bb 21:27 Follow up: Response: No adverse reaction; Pain is decreased bb 20:35 Drug: Zofran (Ondansetron) 4 mg Route: IVP; Site: right antecubital; bb 21:27 Follow up: Response: No adverse reaction bb 20:35 Drug: NS 0.9% 1000 ml Route: IV; Rate: 1 bolus; Site: right antecubital; bb 21:27 Follow up: IV Status: Completed infusion; IV Intake: 1000ml bb 22:25 Follow up: IV Status: Completed infusion; IV Intake: 1000ml tl1 20:38 Drug: Pepcid 20 mg Route: IVP; Site: right antecubital; bb 21:27 Follow up: Response: No adverse reaction bb Point of Care Testing: Urine : 20:06 hCG Reading: Negative; Control Reading: Positive; jp3 Disposition: 04/13 00:24 Co-signature as Attending Physician, Urbano Galvan MD. rn Disposition: 04/12/20 22:12 Discharged to Home. Impression: Nausea and vomiting, Diarrhea, unspecified. - Condition is Stable. - Discharge Instructions: Food Choices to Help Relieve Diarrhea, Adult, Diarrhea, Adult, Nausea and Vomiting, Adult. - Prescriptions for Bentyl 20 mg Oral Tablet - take 1 tablet by ORAL route every 6 hours As needed; 20 tablet. Pepcid 20 mg Oral Tablet - take 1 tablet by ORAL route every 12 hours for 5 days; 10 tablet. Zofran 4 mg Oral Tablet - take 1 tablet by ORAL route every 12 hours As needed; 20 tablet. - Medication Reconciliation Form, Thank You Letter, Antibiotic Education, Prescription Opioid Use form. - Follow up: Private Physician; When: 1 - 2 days; Reason: Worsening of condition. - Problem is new. - Symptoms have improved. Signatures: Dispatcher [employer] EDMS Gauri Harris, OBSTETRIC ASSISTANT-C OBSTETRIC ASSISTANT-Csnw Camelia Garcia, RN RN bb Urbano Galvan MD MD rn Lasagna, Tonya, RN RN tl1 Des Wilcox PA PA cp Paramjit, Yumiko RN RN ca1 Corrections: (The following items were deleted from the chart) 04/12 22:09 19:00 This 35 yrs old Female presents to ER via Ambulatory with complaints of cp Vomiting/Diarrhea. cp 22:27 22:12 04/12/2020 22:12 Discharged to Home. Impression: Nausea and vomiting; Diarrhea, tl1 unspecified. Condition is Stable. Forms are Medication Reconciliation Form, Thank You Letter, Antibiotic Education, Prescription Opioid Use. Follow up: Private Physician; When: 1 - 2 days; Reason: Worsening of condition. Problem is new. Symptoms have improved. cp
[2020-04-13 04:47] VITALS: BP 103/79; TEMP 98.2; O2SAT 99
--- NOTE | 2020-04-13 08:45 | RAD REPORT ---
EXAM DESCRIPTION: US - Abdomen Exam Limited - 04/12/2020 10:08 pm CLINICAL HISTORY: Abd painAbd pain COMPARISON: No comparisons FINDINGS: The gallbladder demonstrates no gallstones. No pericholecystic fluid or gallbladder wall t hickening. The common bile duct is normal measuring 3 mm. The liver demonstrates no findings of intrahepatic biliary dilatation. IMPRESSION: Unremarkable examination.
== END 2020-04-12 22:27 | disposition home or self-care (01) ==
LOC: ER 18:17
DX: R19.7 Diarrhea, unspecified (principal)
CPT/HCPCS: 36415; 76705; 80048; 80076; 81003; 81015; 81025; 83690; 85025; 87086; 87088; 96361; 96372; 96374; 96375; 99284; J0500; J2405; J7030

== ENCOUNTER 2022-06-11 20:11 | Emergency (ER) | payer SELFPAY ==
--- OUTSIDE RECORDS SUMMARY | 2022-06-11 20:14 | XMS REPORT | Continuity of Care Document ---
:1985 Author Organization [facility] t Address [address] [place] [address] Care Team Providers Name Role Phone Unavailable Unavailable Unavailable Problems This patient has no known problems. Allergies, Adverse Reactions, Alerts This patient has no known allergies or adverse reactions. Medications This patient has no known medications. Procedures This patient has no known procedures. Results This patient has no known results.
[2022-06-11] MEDS ORDERED: KETOROLAC 30 MG/ML INJ ONE (20:46)
--- NOTE | 2022-06-11 21:15 | RAD REPORT ---
EXAM DESCRIPTION: RAD - Chest Single View - 06/11/2022 9:05 pm CLINICAL HISTORY: COUGH Chest pain. COMPARISON: Chest Single View dated 08/20/2019 FINDINGS: Portable technique limits examination quality. Mild interstitial prominence seen, slightly greater on the left, probably representing a viral pneumo nitis/bronchitis. The heart is normal in size. No displaced fractures.
[2022-06-11 21:21] LABS: SARS-COV-2 RT PCR NEGATIVE (NEGATIVE)
[2022-06-11] MEDS ORDERED: PEN G BENZ LA 1.2MU/2ML SYRINGE IM ONE (21:48)
--- NOTE | 2022-06-11 21:49 | EDPHYS ---
Physician Documentation [facility] Name: Patricia Quintero Age: 37 yrs Sex: Female : 1985 Arrival Date: 06/11/2022 Time: 20:15 Bed 12 Private MD: ED Physician Erwin De La Torre HPI: 06/11 20:44 This 37 yrs old Female presents to ER via Ambulatory with complaints of Cough, rt Breathing Difficulty, Sore Throat, Headache. 20:44 Onset: The symptoms/episode began/occurred 2 day(s) ago. Severity of symptoms: At their rt worst the symptoms were moderate. Modifying factors: The symptoms are alleviated by nothing, the symptoms are aggravated by nothing. Patient presents to the ED with cough, congestion, rhinorrhea for the past 2 days. She reports having a pleuritic chest pain that only occurs with coughing. She states that today she developed a headache which she describes as a migraine. The patient denies other acute complaints at this time, she did not take anything for symptoms. Symptoms are moderate severity, no other aggravating or alleviating factors.. 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 - Social history:: Smoking status: Patient denies any tobacco usage or history of. - Family history:: not pertinent. ROS: 20:44 Constitutional: Negative for fever, chills, and weight loss, Eyes: Negative for injury, rt pain, redness, and discharge, Abdomen/GI: Negative for abdominal pain, nausea, vomiting, diarrhea, and constipation, MS/Extremity: Negative for injury and deformity, Skin: Negative for injury, rash, and discoloration, Psych: Negative for depression, anxiety, suicide ideation, homicidal ideation, and hallucinations. 20:44 ENT: Positive for rhinorrhea, sore throat. 20:44 Cardiovascular: Positive for chest pain, Negative for edema. 20:44 Respiratory: Positive for cough, shortness of breath. 20:44 Neuro: Positive for headache, Negative for altered mental status. Exam: 20:44 Constitutional: This is a well developed, well nourished patient who is awake, alert, rt and in no acute distress. Head/Face: Normocephalic, atraumatic. Eyes: Pupils equal round and reactive to light, extra-ocular motions intact. Lids and lashes normal. Conjunctiva and sclera are non-icteric and not injected. Cornea within normal limits. Periorbital areas with no swelling, redness, or edema. Chest/axilla: Normal chest wall appearance and motion. Nontender with no deformity. No lesions are appreciated. Cardiovascular: Regular rate and rhythm with a normal S1 and S2. No gallops, murmurs, or rubs. Normal PMI, no JVD. No pulse deficits. Respiratory: Lungs have equal breath sounds bilaterally, clear to auscultation and percussion. No rales, rhonchi or wheezes noted. No increased work of breathing, no retractions or nasal flaring. Abdomen/GI: Soft, non-tender, with normal bowel sounds. No distension or tympany. No guarding or rebound. No evidence of tenderness throughout. Skin: Warm, dry with normal turgor. Normal color with no rashes, no lesions, and no evidence of cellulitis. MS/ Extremity: Pulses equal, no cyanosis. Neurovascular intact. Full, normal range of motion. Neuro: Awake and alert, GCS 15, oriented to person, place, time, and situation. Cranial nerves II-XII grossly intact. Motor strength 5/5 in all extremities. Sensory grossly intact. Cerebellar exam normal. Normal gait. Psych: Awake, alert, with orientation to person, place and time. Behavior, mood, and affect are within normal limits. 20:44 ENT: Posterior pharyngeal erythema without exudates or tonsillar hypertrophy, uvula is midline.. Vital Signs: 20:23 BP 122 / 84; Pulse 111; Resp 20; Temp 99.0; Pulse Ox 100% ; Weight 62.14 kg; Height 5 jh5 ft. 2 in. (157.48 cm); Pain 3/10; 21:43 Pulse 100; Resp 20; Pulse Ox 100% on R/A; mb9 20:23 Body Mass Index 25.06 (62.14 kg, 157.48 cm) 5 MDM: 20:40 Patient medically screened. rt 23:53 Differential Diagnosis: Bronchitis Influenza Upper Respiratory Infection Pharyngitis rt Asthma Exacerbation Viral Syndrome Pneumonia. Data reviewed: vital signs, nurses notes, lab test result(s), radiologic studies. I considered the following discharge prescriptions or medication management in the emergency department I discussed and recommended Over The Counter medications. Test considered but Not performed:. Response to treatment: the patient's symptoms have markedly improved after treatment. 06/11 20:16 Order name: COVID-19/FLU A+B; Complete Time: 21:27 snw 06/11 20:28 Order name: Strep; Complete Time: 21:27 jh5 06/11 20:35 Order name: Chest Single View XRAY; Complete Time: 21:27 rt Administered Medications: 20:59 Drug: Ketorolac 30 mg Route: IM; Site: right deltoid; [facility] 21:48 Drug: Bicillin L-A (penicillin G Benzathine) 1.2 million units Route: IM; Site: right mb9 gluteus; Disposition Summary: 06/11/22 21:48 Discharge Ordered Location: Home rt Problem: new rt Symptoms: have improved rt Condition: Stable rt Diagnosis - Streptococcal pharyngitis rt Followup: rt - With: Private Physician - When: 2 - 3 days - Reason: Discharge Instructions: - Discharge Summary Sheet rt - Strep Throat, Adult, [id number] rt - Upper Respiratory Infection, Adult, [id number] rt Forms: - Medication Reconciliation Form rt - Thank You Letter rt - Antibiotic Education rt - Prescription Opioid Use rt Signatures: Dispatcher [employer] Patty Mariee, RN RN jh5 Mary Ellen Vasquez RN RN mb9 Erwin De La Torre MD MD rt
--- NOTE | 2022-06-11 21:49 | ER ---
Nurse's Notes [facility] Name: Patricia Quintero Age: 37 yrs Sex: Female : 1985 Arrival Date: 06/11/2022 Time: 20:15 Bed 12 Private MD: Diagnosis: Streptococcal pharyngitis Presentation: 06/11 20:23 Chief complaint: Spouse and/or significant other states: she has had sore throat, jh5 cough, headache, body aches, and low fevers since yesterday. Coronavirus screen: Vaccine status: Patient reports receiving the 2nd dose of the covid vaccine. Client denies travel out of the [place] in the last 14 days. Ebola Screen: Patient negative for fever greater than or equal to 101.5 degrees Fahrenheit, and additional compatible Ebola Virus Disease symptoms Patient denies exposure to infectious person. Patient denies travel to an Ebola-affected area in the 21 days before illness onset. Initial Sepsis Screen: Does the patient meet any 2 criteria? No. Patient's initial sepsis screen is negative. Does the patient have a suspected source of infection? No. Patient's initial sepsis screen is negative. Risk Assessment: Do you want to hurt yourself or someone else? Patient reports no desire to harm self or others. Onset of symptoms was June 10, 2022. 20:23 Method Of Arrival: Ambulatory [facility] 20:23 Acuity: REUBEN 4 5 Triage Assessment: 20:27 General: Appears uncomfortable, Behavior is calm, cooperative, appropriate for age. 5 Pain: Complains of pain in headache. Respiratory: Reports cough that is non-productive, persistent Onset: The symptoms/episode began/occurred gradually, the patient has mild shortness of breath. 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 Historical: - PMHx: 20:27 Asthma; ectopic ; Ovarian cyst; jh5 - Immunization history:: Adult Immunizations up to date. - Social history:: Smoking status: Patient denies any tobacco usage or history of. - Family history:: not pertinent. Screenin:22 [facility] ED Fall Risk Assessment (Adult) History of falling in the last 3 months, mb9 including since admission No falls in past 3 months (0 pts) Confusion or Disorientation No (0 pts) Intoxicated or Sedated No (0 pts) Impaired Gait No (0 pts) Mobility Assist Device Used No (0 pt) Altered Elimination No (0 pt) Score/Fall Risk Level 0 - 2 = Low Risk Oriented to surroundings, Maintained a safe environment, Educated pt \T\ family on fall prevention, incl call for assistance when getting out of bed. Abuse screen: Denies threats or abuse. Nutritional screening: No deficits noted. Tuberculosis screening: No symptoms or risk factors identified. Assessment: 20:28 Respiratory: Airway is patent Respiratory effort is even, unlabored. 5 21:12 General: Appears uncomfortable, Behavior is crying. Pain: Complains of pain in throat mb9 Quality of pain is described as burning, aching. Neuro: Level of Consciousness is awake, alert, obeys commands. Neuro: Reports headache. Cardiovascular: Rhythm is regular. Respiratory: Reports cough that is pain with cough Airway is patent Respiratory effort is even, unlabored, Respiratory pattern is regular, symmetrical, Breath sounds are clear bilaterally. GI: Patient currently denies diarrhea, nausea, vomiting. Derm: Skin is pink, warm \T\ dry. Vital Signs: 20:23 BP 122 / 84; Pulse 111; Resp 20; Temp 99.0; Pulse Ox 100% ; Weight 62.14 kg; Height [address] [facility] ft. 2 in. (157.48 cm); Pain 3/10; 21:43 Pulse 100; Resp 20; Pulse Ox 100% on R/A; mb9 20:23 Body Mass Index 25.06 (62.14 kg, 157.48 cm) 5 ED Course: 20:15 Patient arrived in ED. ja2 20:21 Erwin De La Torre MD is Attending Physician. rt 20:27 Triage completed. 5 20:27 Arm band placed on right wrist. jh5 21:05 Mary Ellen Vasquez, ALEXANDREA is Primary Nurse. mb9 21:07 Chest Single View XRAY In Process Unspecified. EDMS 21:23 Bed in low position. Call light in reach. Side rails up X 1. Client placed on mb9 continuous cardiac and pulse oximetry monitoring. NIBP monitoring applied. 21:57 No provider procedures requiring assistance completed. Patient did not have IV access mb9 during this emergency room visit. Administered Medications: 20:59 Drug: Ketorolac 30 mg Route: IM; Site: right deltoid; 5 21:48 Drug: Bicillin L-A (penicillin G Benzathine) 1.2 million units Route: IM; Site: right mb9 gluteus; Medication: 21:22 VIS not applicable for this client. mb9 Outcome: 21:48 Discharge ordered by . rt 21:58 Discharged to home ambulatory. mb9 21:58 Condition: stable 21:58 Discharge instructions given to patient, Instructed on discharge instructions, follow up and referral plans. Demonstrated understanding of instructions, follow-up care. 21:58 Patient left the ED. mb9 Signatures: Dispatcher [employer] EDMS Patty Borges jaPatty Tate, RN RN jh5 Mary Ellen Vasquez RN RN mb9 Erwin De La Torre MD MD rt
[2022-06-11 22:13] VITALS: BP 122/84; TEMP 99; O2SAT 100
== END 2022-06-11 21:58 | disposition home or self-care (01) ==
LOC: ER 20:11
DX: J02.0 Streptococcal pharyngitis (principal); Z20.822 Contact with and (suspected) exposure to COVID-19
CPT/HCPCS: 0240U; 71045; 87081; 96372; 99283; J0561

== ENCOUNTER 2022-11-06 23:12 | Emergency (ER) | payer SELFPAY ==
--- OUTSIDE RECORDS SUMMARY | 2022-11-06 23:15 | XMS REPORT | Continuity of Care Document ---
:1985 Author Organization [facility] t Address [address] [facility] [address] [place] [address] Care Team Providers Name Role Phone Unavailable Unavailable Unavailable Problems This patient has no known problems. Allergies, Adverse Reactions, Alerts This patient has no known allergies or adverse reactions. Medications This patient has no known medications. Procedures This patient has no known procedures. Encounters Start End Encounter Admission Attending Care Care Encounter Source Date/Time Date/Time Type Type Clinicians Facility Department ID 2022-04-10 2022-04-10 Outpatient [facility] SFA [id number] Romeo 11:36:35 11:36:35 [id number] F Desmond 2022-03-29 2022-03-29 Outpatient [facility] SFA [id number] Romeo 09:03:47 09:03:47 [id number] F Desmond 2022-03-28 2022-03-28 Outpatient [facility] SFA [id number] Romeo 15:58:29 15:58:29 1026 F Desmond Results This patient has no known results.
[2022-11-07] MEDS ORDERED: ALBUTEROL 2.5 MG/3 ML NEB SOL ONE (00:40)
[2022-11-07] MEDS ORDERED: ACETAMINOPHEN 325 MG TABLET ONE (00:40)
[2022-11-07] MEDS ORDERED: IPRATROPIUM BROM 0.5MG/2.5ML ONE (00:40)
[2022-11-07] MEDS ORDERED: NA CHLORIDE 0.9% 1,000 ML ONE (00:40)
[2022-11-07] MEDS ORDERED: ONDANSETRON 4 MG (ODT) TAB ONE (00:40)
[2022-11-07 01:24] LABS: Absolute Lymphocytes (CBC) 2.1 K/uL (0.7-4.9); Lymphocytes % 39.6 % (15.3-44.8); MCV 84.8 fL (80-100); MPV 9.3 fL (7.6-11.3); RBC Red Blood Cell Count 4.83 M/uL (3.86-4.86)
[2022-11-07 01:36] LABS: Potassium 3.5 mEq/L (3.5-5.1)
--- NOTE | 2022-11-07 01:59 | ER ---
Nurse's Notes [facility] Name: Patricia Quintero Age: 37 yrs Sex: Female : 1985 Arrival Date: 11/06/2022 Time: 23:12 Bed 8 Private MD: Diagnosis: Unspecified asthma with (acute) exacerbation;Headache Presentation: 11/06 23:39 Chief complaint: Patient states: migraine and asthma attack began at 8pm. Coronavirus kl screen: Vaccine status: Patient reports receiving the 2nd dose of the covid vaccine. Ebola Screen: Patient negative for fever greater than or equal to 101.5 degrees Fahrenheit, and additional compatible Ebola Virus Disease symptoms. Initial Sepsis Screen: Does the patient meet any 2 criteria? No. Patient's initial sepsis screen is negative. Does the patient have a suspected source of infection? No. Patient's initial sepsis screen is negative. Risk Assessment: Do you want to hurt yourself or someone else? Patient reports no desire to harm self or others. Onset of symptoms was November 06, 2022 at 20:00. 23:39 Method Of Arrival: Ambulatory 23:39 Acuity: REUBEN 4 kl Triage Assessment: 23:42 General: Appears uncomfortable, Behavior is calm, cooperative. Pain: Complains of pain kl in head and neck Pain currently is 10 out of 10 on a pain scale. Respiratory: Reports shortness of breath at rest Onset: The symptoms/episode began/occurred gradually, the patient has mild shortness of breath. Historical: - Allergies: 23:41 No Known Allergies; kl - PMHx: 23:41 Asthma; ectopic ; Ovarian cyst; migraines; kl - PSHx: 23:41 None; kl - Immunization history:: Adult Immunizations not up to date. - Social history:: Smoking status: Patient denies any tobacco usage or history of. Screenin/07 03:30 [facility] ED Fall Risk Assessment (Adult) History of falling in the last 3 months, jb4 including since admission No falls in past 3 months (0 pts) Confusion or Disorientation No (0 pts) Score/Fall Risk Level 0 - 2 = Low Risk Oriented to surroundings, Maintained a safe environment. Abuse screen: Denies threats or abuse. Nutritional screening: No deficits noted. Tuberculosis screening: No symptoms or risk factors identified. Assessment: 00:30 General: Appears in no apparent distress. uncomfortable, Behavior is calm, cooperative, jb4 appropriate for age. Pain: Complains of pain in abdomen Pain does not radiate. Pain currently is 6 out of 10 on a pain scale. Neuro: Level of Consciousness is awake, alert, obeys commands. Cardiovascular: Patient's skin is warm and dry. Respiratory: Airway is patent Respiratory effort is even, unlabored. GI: Reports nausea, vomiting. : No signs and/or symptoms were reported regarding the genitourinary system. EENT: No signs and/or symptoms were reported regarding the EENT system. Derm: Skin is intact, Skin is pink, warm \T\ dry. Musculoskeletal: Circulation, motion, and sensation intact. Range of motion: intact in all extremities. 01:30 Reassessment: Patient appears in no apparent distress at this time. Patient and/or jb4 family updated on plan of care and expected duration. Pain level reassessed. Patient is alert, oriented x 3, equal unlabored respirations, skin warm/dry/pink. 02:30 Reassessment: Patient appears in no apparent distress at this time. Patient and/or jb4 family updated on plan of care and expected duration. Pain level reassessed. Patient is alert, oriented x 3, equal unlabored respirations, skin warm/dry/pink. 03:26 Reassessment: Patient appears in no apparent distress at this time. Patient and/or jb4 family updated on plan of care and expected duration. Pain level reassessed. Patient is alert, oriented x 3, equal unlabored respirations, skin warm/dry/pink. Vital Signs: 11/06 23:39 BP 129 / 82; Pulse 94; Resp 18; Temp 97.7; Pulse Ox 96% ; Weight 74.84 kg (M); Height 5 kl ft. 2 in. ; Pain 03/12; 11/07 01:00 BP 106 / 72; Pulse 80; Resp 16; Pulse Ox 100% on R/A; jb4 03:26 BP 109 / 69; Pulse 88; Resp 16; Pulse Ox 100% on R/A; jb4 11/06 23:39 Body Mass Index 30.18 (74.84 kg, 157.48 cm) 11/06 23:39 Pain Scale: Adult ED Course: 11/06 23:12 Patient arrived in ED. jj6 23:22 Des Wilcox PA is PHCP. cp 23:22 Ernesto Mcleod MD is Attending Physician. cp 23:41 Triage completed. vladimir 11/07 00:22 XRAY Chest (1 view) In Process Unspecified. EDMS 00:30 Initial lab(s) drawn, by me, sent to lab. Inserted saline lock: 20 gauge in right upper jb4 arm, using aseptic technique. Blood collected. 02:41 Jose Francisco Zaidi, RN is Primary Nurse. jb4 03:30 No provider procedures requiring assistance completed. IV discontinued, intact, jb4 bleeding controlled, No redness/swelling at site. Pressure dressing applied. 03:30 Patient has correct armband on for positive identification. Bed in low position. Call jb4 light in reach. Side rails up X 1. Client placed on continuous cardiac and pulse oximetry monitoring. NIBP monitoring applied. Administered Medications: 00:46 Drug: Ondansetron PO 4 mg Route: PO; jb4 00:46 Drug: DuoNeb Nebulize (2.5 mg - 0.5 mg) 3 ml Route: Nebulizer; jb4 00:46 Drug: NS 0.9% IV 1000 ml Route: IV; Rate: 1 bolus; Site: right antecubital; jb4 01:16 Drug: Acetaminophen PO 650 mg Route: PO; jb4 03:25 Drug: predniSONE PO 60 mg Route: PO; jb4 Outcome: 01:58 Discharge ordered by MD. cp 03:30 Discharged to home ambulatory, with family. jb4 03:30 Condition: stable 03:30 Discharge instructions given to patient, Instructed on discharge instructions, follow up and referral plans. medication usage, Demonstrated understanding of instructions, follow-up care, medications, Prescriptions given X 2. 03:32 Patient left the ED. jb4 Signatures: Dispatcher [employer] EDIA Erica Huggins RN RN Des Jackson PA PA cp Bryson, James, RN RN jb4 Xena Harper jj6
--- NOTE | 2022-11-07 01:59 | EDPHYS ---
Physician Documentation [facility] Name: aPtricia Quintero Age: 37 yrs Sex: Female : 1985 Arrival Date: 11/06/2022 Time: 23:12 Bed 8 Private MD: ED Physician Ernesto Mcleod HPI: 11/07 00:00 This 37 yrs old Female presents to ER via Ambulatory with complaints of cp Shortness Of Breath. 00:00 The patient has shortness of breath at rest. Onset: The symptoms/episode began/occurred cp tonight, about 1999. 00:00 Duration: The symptoms are continuous, and are steadily getting worse. cp 00:00 Associated signs and symptoms: Pertinent positives: productive cough, shortness of cp breath, headache, Pertinent negatives: chest pain, dizziness, fever, vomiting. Severity of symptoms: in the emergency department the symptoms are unchanged despite home interventions. Historical: - Allergies: 11/06 23:41 No Known Allergies; kl - PMHx: 23:41 Asthma; ectopic ; Ovarian cyst; migraines; kl - PSHx: 23:41 None; kl - Immunization history:: Adult Immunizations not up to date. - Social history:: Smoking status: Patient denies any tobacco usage or history of. ROS: 11/07 00:05 Constitutional: Negative for body aches, chills, fever, poor PO intake. cp 00:05 Eyes: Negative for injury, pain, redness, and discharge. cp 00:05 ENT: Negative for drainage from ear(s), ear pain, sore throat, difficulty swallowing, difficulty handling secretions. 00:05 Neck: Negative for pain with movement, pain at rest, stiffness. 00:05 Cardiovascular: Negative for chest pain, edema, palpitations. 00:05 Respiratory: Positive for cough, with no reported sputum, shortness of breath. 00:05 Abdomen/GI: Negative for abdominal pain, vomiting, diarrhea, constipation. 00:05 Skin: Negative for rash. 00:05 Neuro: Positive for headache, Negative for altered mental status, syncope, weakness. 00:05 All other systems are negative. Exam: 00:10 Constitutional: The patient appears in no acute distress, alert, awake, cp non-diaphoretic, non-toxic, well developed, well nourished. 00:10 Head/Face: Normocephalic, atraumatic. cp 00:10 Eyes: Periorbital structures: appear normal, Conjunctiva: normal, no exudate, no injection, Sclera: no appreciated abnormality, Lids and lashes: appear normal, bilaterally. 00:10 ENT: External ear(s): are unremarkable, Nose: is normal, Mouth: Lips: moist, Oral mucosa: pink and intact, moist, Posterior pharynx: is normal, airway is patent, no erythema, no exudate. 00:10 Neck: ROM/movement: is normal, is supple, without pain, no range of motions limitations, no meningismus. 00:10 Chest/axilla: Inspection: normal. 00:10 Cardiovascular: Rate: normal, Rhythm: regular, Edema: is not appreciated, JVD: is not appreciated. 00:10 Respiratory: the patient does not display signs of respiratory distress, Respirations: normal, no use of accessory muscles, no retractions, labored breathing, that is mild, Breath sounds: bronchial sounds, that are mild, are heard diffusely, stridor, is not appreciated, wheezing: that is mild, is heard diffusely. 00:10 Abdomen/GI: Exam negative for discomfort, distension, guarding, Inspection: abdomen appears normal. 00:10 Back: pain, is absent, ROM is normal. 00:10 Skin: cellulitis, is not appreciated, no rash present. 00:10 Neuro: Orientation: to person, place \T\ time. Mentation: is normal, Motor: moves all fours, strength is normal, Sensation: is normal. Vital Signs: 11/06 23:39 BP 129 / 82; Pulse 94; Resp 18; Temp 97.7; Pulse Ox 96% ; Weight 74.84 kg (M); Height 5 kl ft. 2 in. ; Pain 03/12; 11/07 01:00 BP 106 / 72; Pulse 80; Resp 16; Pulse Ox 100% on R/A; jb4 03:26 BP 109 / 69; Pulse 88; Resp 16; Pulse Ox 100% on R/A; jb4 11/06 23:39 Body Mass Index 30.18 (74.84 kg, 157.48 cm) 11/06 23:39 Pain Scale: Adult MDM: 11/06 23:46 Patient medically screened. cp 11/07 01:57 Data reviewed: vital signs, nurses notes, lab test result(s), radiologic studies, plain cp films. 01:57 Differential diagnosis: Anemia Anxiety Reaction asthma, pneumonia, Pneumothorax Sepsis cp Unstable Angina. Antibiotic administration: Not indicated, the patient's primary pathology is reactive airway disease. I considered the following discharge prescriptions or medication management in the emergency department Medications were administered in the Emergency Department. See MAR. Care significantly affected by the following chronic conditions: asthma. Counseling: I had a detailed discussion with the patient and/or guardian regarding: the historical points, exam findings, and any diagnostic results supporting the discharge/admit diagnosis, lab results, radiology results, to return to the emergency department if symptoms worsen or persist or if there are any questions or concerns that arise at home. Response to treatment: the patient's symptoms have markedly improved after treatment, and as a result, I will discharge patient. 11/06 23:49 Order name: CBC with Diff; Complete Time: 01:45 11/06 23:49 Order name: BMP; Complete Time: 01:45 cp 11/06 23:49 Order name: Urinalysis W/Microscopic; Complete Time: 03:01 cp 11/06 23:49 Order name: PREGU; Complete Time: 03:01 cp 11/06 23:49 Order name: XRAY Chest (1 view) 11/06 23:49 Order name: IV; Complete Time: 00:46 cp Administered Medications: 00:46 Drug: Ondansetron PO 4 mg Route: PO; jb4 00:46 Drug: DuoNeb Nebulize (2.5 mg - 0.5 mg) 3 ml Route: Nebulizer; jb4 00:46 Drug: NS 0.9% IV 1000 ml Route: IV; Rate: 1 bolus; Site: right antecubital; jb4 01:16 Drug: Acetaminophen PO 650 mg Route: PO; jb4 03:25 Drug: predniSONE PO 60 mg Route: PO; jb4 Disposition Summary: 11/07/22 01:58 Discharge Ordered Location: Home cp Condition: Stable cp Diagnosis - Unspecified asthma with (acute) exacerbation cp - Headache cp Discharge Instructions: - Discharge Summary Sheet cp - Asthma, Adult cp - Migraine Headache cp Forms: - Medication Reconciliation Form cp - Thank You Letter cp - Antibiotic Education cp - Prescription Opioid Use cp Prescriptions: - albuterol sulfate 90 mcg/actuation Inhalation HFA Aerosol Inhaler - inhale 1 puff by INHALATION route every 3 to 6 hours as needed for cp bronchospasm; administer via ventilator; 1 unit; Refills: 0, Product Selection Permitted - Prednisone 20 mg Oral Tablet - take 2 tablets by ORAL route once daily for 5 days; 10 tablet; Refills: 0, cp Product Selection Permitted Signatures: Dispatcher [employer] Erica Malone RN RN kl Page, Corey, PA PA cp Bryson, James, RN RN jb4 Corrections: (The following items were deleted from the chart) 11/08 02:42 11/07 00:00 Onset: The symptoms/episode began/occurred last night, about 1999, cp cp
[2022-11-07 02:44] LABS: Renal Epithelial <5 /HPF (None Seen); Specific Gravity 1.007 (1.005-1.030); Urine Bacteria <20 /HPF (<20); Urine Bilirubin NEGATIVE (Negative); Urine Blood Negative (Negative); Urine Clarity Clear (Clear); Urine Color Colorless (Yellow); Urine Glucose NEGATIVE (Negative); Urine Mucus Slight /HPF (None Seen); Urine Protein NEGATIVE (Negative); Urine RBC <5 /HPF (None Seen); Urine Urobilinogen Normal (Normal); Urine pH 5.5 (5.0-7.0)
[2022-11-07 02:56] LABS: Specific Gravity 1.007 (1.005-1.030)
[2022-11-07] MEDS ORDERED: predniSONE 20 MG TAB ONE (03:29)
[2022-11-07 04:33] VITALS: TEMP 97.7
[2022-11-07 04:34] VITALS: O2SAT 100
[2022-11-07 04:36] VITALS: BP 109/69
--- NOTE | 2022-11-07 10:48 | RAD REPORT ---
EXAM DESCRIPTION: Chest Single View CLINICAL HISTORY: 37 years Female SOB COMPARISON: None FINDINGS: Lung volumes diminished. Mild bronchovascular crowding. Cardiac silhouette is normal in size. No pneumothorax. No large pleural effusion. No focal consolidation. No acute bony finding. IMPRESSION: 1. No acute cardiopulmonary findings. 2. Low lung volumes with hypoventilatory changes. Electronically signed by: Zackary Lombardo MD 11/07/2022 12:36 AM CDT Due to temporary technical issues with the PACS/Fluency reporting system, reports are being signed by the in house radiologist without review as a courtesy to ensure prompt reporting. The interpreting r adiologist is fully responsible for the content of the report.
== END 2022-11-07 03:32 | disposition home or self-care (01) ==
LOC: ER 23:12
DX: J45.901 Unspecified asthma with (acute) exacerbation (principal); R51.9 Headache, unspecified; R06.02 Shortness of breath; R05.8 Other specified cough
CPT/HCPCS: 36415; 71045; 80048; 81001; 81025; 85025; 94640; 99285; J7030; J7512; J7613; J7644; Q0162

== ENCOUNTER 2022-12-10 18:29 | Emergency (ER) | payer SELFPAY ==
--- OUTSIDE RECORDS SUMMARY | 2022-12-10 18:32 | XMS REPORT | Continuity of Care Document ---
:1985 Author Organization [facility] t Address [address] [facility] [address] [place] [address] Care Team Providers Name Role Phone Unavailable [...] ID 2022-04-10 2022-04-10 Outpatient [facility] SFA [id number] [id number] Romeo 11:36:35 11:36:35 [id number] F Desmond 2022-03-29 2022-03-29 Outpatient [facility] SFA [id number] Romeo 09:03:47 09:03:47 1027 F Desmond 2022-03-28 2022-03-28 Outpatient [facility] SFA [id number] Romeo 15:58:29 15:58:29 1026 F Desmond Results This patient has no known results.
[2022-12-10 19:23] LABS: Specific Gravity 1.016 (1.005-1.030)
[2022-12-10 19:24] LABS: Specific Gravity 1.016 (1.005-1.030); Urine Bacteria <20 /HPF (<20); Urine Bilirubin NEGATIVE (Negative); Urine Blood Trace (Negative); Urine Clarity Turbid (Clear); Urine Color Light-Yellow (Yellow); Urine Glucose NEGATIVE (Negative); Urine Mucus Slight /HPF (None Seen); Urine Protein NEGATIVE (Negative); Urine Urobilinogen Normal (Normal)
[2022-12-10 20:21] LABS: Hematocrit 40.8 % (36.0-45.0); Lymphocytes % 9.2 % (15.3-44.8); MCV 84.9 fL (80-100)
[2022-12-10] MEDS ORDERED: ONDANSETRON 4 MG/2 ML VIAL ONE (20:24)
[2022-12-10] MEDS ORDERED: DICYCLOMINE HCL 20 MG/2 ML AMP IM ONE (20:25)
[2022-12-10] MEDS ORDERED: NA CHLORIDE 0.9% 1,000 ML ONE (20:25)
[2022-12-10] MEDS ORDERED: FAMOTIDINE 20 MG/2 ML VIAL IV ONE (20:25)
[2022-12-10 20:42] LABS: Albumin 3.8 g/dL (3.4-5.0); Bilirubin Total 0.8 mg/dL (0.2-1.0); Potassium 3.9 mEq/L (3.5-5.1); Protein, Total 8.1 g/dL (6.4-8.2)
--- NOTE | 2022-12-10 21:32 | RAD REPORT ---
EXAM DESCRIPTION: CTAbdomen Pelvis W Contrast - 12/10/2022 9:21 pm CLINICAL HISTORY: left lower abdomen pain COMPARISON: Abdomen Pelvis W Contrast dated 04/03/2019 TECHNIQUE: CT of the abdomen and pelvis was performed. All CT scans are performed using dose optimization technique as appropriate and may include automated exposure control or mA/KV adjustment according to patient size. FINDINGS: Lower chest: No acute abnormality. Liver: No acute abnormality or suspicious lesions. Hepatic steatosis Biliary: No biliary ductal dilatation. Stomach: No significant focal abnormality. Duodenum: No significant focal abnormality. Pancreas: No significant abnormality. Spleen: No significant abnormality. Adrenal: No suspicious lesions. Kidney/ureter: No hydronephrosis. No renal calculi. Retroperitoneum: No retroperitoneal adenopathy. Vascular: No aneurysm. Bowel: No significant focal abnormality. Normal appendix. Peritoneum: No ascites or free air. Bladder: Grossly unremarkable. Reproductive: No adnexal masses. Bones: No acute fracture. Other: n/a IMPRESSION: No acute intra-abdominal or pelvic finding. Normal appendix. No urinary tract calculi.
--- NOTE | 2022-12-10 22:19 | EDPHYS ---
Physician Documentation [facility] Name: Patricia Quintero Age: 37 yrs Sex: Female : 1985 Arrival Date: 12/10/2022 Time: 18:29 Bed 13 Private MD: DAISY Physician Des Smith HPI: 12/10 19:00 This 37 yrs old Female presents to ER via Ambulatory with complaints of cp Abdominal Cramping, Vomiting/Diarrhea. Historical: - Allergies: 18:41 No Known Allergies; bp - Home Meds: 18:41 Albuterol Inhl [Active]; bp - PMHx: 18:41 Asthma; Migraines; Ovarian cyst; ectopic ; bp - Immunization history:: Adult Immunizations up to date. - Social history:: Smoking status: Patient denies any tobacco usage or history of. ROS: 19:05 Constitutional: Positive for poor PO intake, Negative for body aches, chills, fever. cp 19:05 Eyes: Negative for injury, pain, redness, and discharge. cp 19:05 ENT: Negative for drainage from ear(s), ear pain, sore throat, difficulty swallowing, difficulty handling secretions. 19:05 Cardiovascular: Negative for chest pain, edema, palpitations. 19:05 Respiratory: Negative for cough, shortness of breath, wheezing. 19:05 Abdomen/GI: Positive for nausea, vomiting, and diarrhea, abdominal cramps, anorexia, Negative for constipation, black/tarry stool, rectal bleeding. 19:05 Back: Negative for pain at rest, pain with movement. 19:05 : Negative for urinary symptoms, vaginal bleeding. 19:05 Neuro: Negative for altered mental status, numbness. 19:05 All other systems are negative. Exam: 19:10 Constitutional: The patient appears in no acute distress, alert, awake, non-toxic, well cp developed, well nourished, uncomfortable. 19:10 Head/Face: Normocephalic, atraumatic. cp 19:10 Eyes: Periorbital structures: appear normal, Conjunctiva: normal, no exudate, no injection, Sclera: no appreciated abnormality, Lids and lashes: appear normal, bilaterally. 19:10 ENT: External ear(s): are unremarkable, Nose: is normal, Mouth: Lips: moist, Oral mucosa: pink and intact, Posterior pharynx: is normal, airway is patent, no erythema, no exudate. 19:10 Chest/axilla: Inspection: normal. 19:10 Cardiovascular: Rate: normal, Rhythm: regular. 19:10 Respiratory: the patient does not display signs of respiratory distress, Respirations: normal, no use of accessory muscles, no retractions, labored breathing, is not present, Breath sounds: are clear throughout, no decreased breath sounds, no stridor, no wheezing. 19:10 Abdomen/GI: Inspection: abdomen appears normal, Bowel sounds: active, all quadrants, Palpation: soft, in all quadrants, moderate abdominal tenderness, in the left upper quadrant and left lower quadrant, rebound tenderness, is not appreciated, involuntary guarding, is not appreciated. 19:10 Back: CVA tenderness, is absent. 19:10 Skin: no rash present. Vital Signs: 18:40 BP 124 / 88; Pulse 97; Resp 16; Temp 98.4; Pulse Ox 99% ; bp 19:09 BP 117 / 80; Pulse 85; Resp 18; Pulse Ox 94% ; vc1 20:00 BP 113 / 74; Pulse 82; Resp 17; Pulse Ox 96% ; vc1 21:00 BP 105 / 74; Pulse 96; Resp 17; Pulse Ox 98% ; vc1 MDM: 18:44 Patient medically screened. jet 20:00 Differential diagnosis: appendicitis, cholecystitis, Cholelithiasis, non-specific abd cp pain, pancreatitis, Peptic Ulcer Disease, Perf. Duodenal Ulcer, Perf. Gastric Ulcer, Pyelonephritis, Ureterolithiasis, urinary tract infection. 22:18 Data reviewed: vital signs, nurses notes, lab test result(s), radiologic studies, CT cp scan. 22:18 I considered the following discharge prescriptions or medication management in the emergency department Medications were administered in the Emergency Department. See MAR. Counseling: I had a detailed discussion with the patient and/or guardian regarding: the historical points, exam findings, and any diagnostic results supporting the discharge/admit diagnosis, lab results, radiology results, to return to the emergency department if symptoms worsen or persist or if there are any questions or concerns that arise at home. Response to treatment: the patient's symptoms have markedly improved after treatment, and as a result, I will discharge patient. Special discussion: Based on the patient's Hx, exam, and Dx evaluation, there is no indication for emergent surgery or inpatient Tx. It is understood by the patient/guardian that if the Sx's persist or worsen they need to return immediately for re-evaluation. 12/10 18:51 Order name: PREGU; Complete Time: 20:45 cp 12/10 18:59 Order name: Urinalysis w/ reflexes; Complete Time: 20:45 em1 12/10 20:45 Interpretation: Normal except: UCLA Turbid; UKET 1+; UBLD Trace; URBC 5-10. cp 12/10 19:57 Order name: CBC with Diff; Complete Time: 20:45 cp 12/10 20:45 Interpretation: Normal except: YASH% 86.1; LYM% 9.2; NEUT A 9.1. cp 12/10 19:57 Order name: CMP; Complete Time: 20:45 cp 12/10 19:57 Order name: Lipase; Complete Time: 20:45 cp 12/10 19:57 Order name: CT Abd/Pelvis - IV Contrast Only; Complete Time: 21:50 cp 12/10 21:50 Interpretation: Report reviewed. cp 12/10 19:57 Order name: IV Saline Lock; Complete Time: 20:29 cp 12/10 19:57 Order name: Labs collected and sent; Complete Time: 20:29 cp 12/10 21:51 Order name: PO challenge; Complete Time: 22:13 cp Administered Medications: 20:26 Drug: Dicyclomine IM 20 mg {Note: pt request med to be administered in deltoid gave 0.5 vc1 in right deltoid, half in left deltoid.} Route: IM; Site: Other; 20:28 Drug: NS 0.9% IV 1000 ml Route: IV; Rate: 1 bolus; Site: right antecubital; vc1 20:28 Drug: Famotidine IVP 20 mg Route: IVP; Site: right antecubital; vc1 20:28 Drug: Ondansetron IVP 4 mg Route: IVP; Site: right antecubital; vc1 Disposition Summary: 12/10/22 22:19 Discharge Ordered Location: Home cp Problem: new cp Symptoms: have improved cp Condition: Stable cp Diagnosis - Diarrhea, unspecified cp - Nausea with vomiting, unspecified cp Followup: cp - With: Private Physician - When: 2 - 3 days - Reason: Worsening of condition Discharge Instructions: - Discharge Summary Sheet cp - Food Choices to Help Relieve Diarrhea, Adult cp - Diarrhea, Adult cp - Nausea and Vomiting, Adult cp Forms: - Medication Reconciliation Form cp - Thank You Letter cp - Antibiotic Education cp - Prescription Opioid Use cp - Patient Portal [email or web address].htm cp Prescriptions: - Zofran 4 mg Oral Tablet - take 1 tablet by ORAL route every 12 hours As needed; 20 tablet; Refills: 0, cp Product Selection Permitted - dicyclomine 20 mg Oral Tablet - take 1 tablet by ORAL route 4 times per day; 30 tablet; Refills: 0, Product cp Selection Permitted Signatures: Dispatcher [employer] EDMS Des Smith MD MD cha Page, Corey, PA PA cp Meng Guerrero, RN RN bp Karen Junior RN RN vc1 Corrections: (The following items were deleted from the chart) 18:42 18:41 Home Meds: None; bp bp 19:02 18:53 Urine Microscopic+U.LAB.BRZ ordered. EDKY EDMS 21:51 21:51 This 37 yrs old Female presents to ER via Ambulatory with complaints of cp Abdominal Cramping, Vomiting/Diarrhea. cp
--- NOTE | 2022-12-10 22:19 | ER ---
Nurse's Notes [facility] Name: Patricia Quintero Age: 37 yrs Sex: Female : 1985 Arrival Date: 12/10/2022 Time: 18:29 Bed 13 Private MD: Diagnosis: Diarrhea, unspecified;Nausea with vomiting, unspecified Presentation: 12/10 18:40 Chief complaint: Patient states: LEFT SIDED ABDOMINAL PAIN RADIATING TO LEFT FLANK bp SINCE THIS MORNING, +N/V/D. DENIES URINARY S/S. Coronavirus screen: At this time, the client does not indicate any symptoms associated with coronavirus-19. Ebola Screen: No symptoms or risks identified at this time. Initial Sepsis Screen: Does the patient meet any 2 criteria? No. Patient's initial sepsis screen is negative. Does the patient have a suspected source of infection? No. Patient's initial sepsis screen is negative. Risk Assessment: Do you want to hurt yourself or someone else? Patient reports no desire to harm self or others. Onset of symptoms was December 10, 2022. 18:40 Method Of Arrival: Ambulatory bp 18:40 Acuity: REUBEN 3 bp Triage Assessment: 18:41 General: Appears uncomfortable, Behavior is cooperative, appropriate for age. Pain: bp Complains of pain in abdomen. EENT: No deficits noted. Neuro: No deficits noted. Cardiovascular: No deficits noted. Respiratory: No deficits noted. GI: Reports lower abdominal pain, diarrhea, nausea, vomiting. : Reports pain in left flank(s). Derm: No deficits noted. Musculoskeletal: No deficits noted. Historical: - Allergies: 18:41 No Known Allergies; bp - Home Meds: 18:41 Albuterol Inhl [Active]; bp - PMHx: 18:41 Asthma; Migraines; Ovarian cyst; ectopic ; bp - Immunization history:: Adult Immunizations up to date. - Social history:: Smoking status: Patient denies any tobacco usage or history of. Screenin:00 [facility] ED Fall Risk Assessment (Adult) History of falling in the last 3 months, vc1 including since admission No falls in past 3 months (0 pts) Confusion or Disorientation No (0 pts) Intoxicated or Sedated No (0 pts) Impaired Gait No (0 pts) Mobility Assist Device Used No (0 pt) Altered Elimination No (0 pt) Score/Fall Risk Level 0 - 2 = Low Risk Oriented to surroundings, Maintained a safe environment, Educated pt \T\ family on fall prevention, incl call for assistance when getting out of bed. Abuse screen: Denies threats or abuse. Nutritional screening: No deficits noted. Tuberculosis screening: No symptoms or risk factors identified. Assessment: 19:09 Reassessment: No changes from previously documented assessment. Patient and/or family vc1 updated on plan of care and expected duration. Pain level reassessed. Assumed care of pt from ALEXANDREA Rankin. General: Appears uncomfortable, ill, Behavior is cooperative. 21:00 Reassessment: Patient and/or family updated on plan of care and expected duration. Pain vc1 level reassessed. Patient is alert, oriented x 3, equal unlabored respirations, skin warm/dry/pink. Patient states feeling better. Patient states symptoms have improved. Vital Signs: 18:40 BP 124 / 88; Pulse 97; Resp 16; Temp 98.4; Pulse Ox 99% ; bp 19:09 BP 117 / 80; Pulse 85; Resp 18; Pulse Ox 94% ; vc1 20:00 BP 113 / 74; Pulse 82; Resp 17; Pulse Ox 96% ; vc1 21:00 BP 105 / 74; Pulse 96; Resp 17; Pulse Ox 98% ; vc1 ED Course: 18:30 Patient arrived in ED. rg4 18:41 Triage completed. bp 18:41 Arm band placed on. bp 18:43 Des Wilcox PA is PHCP. cp 18:43 Des Smith MD is Attending Physician. cp 18:52 Massiel Casey, ALEXANDREA is Primary Nurse. ko1 19:00 Patient has correct armband on for positive identification. Bed in low position. Pulse vc1 ox on. NIBP on. 21:22 CT Abd/Pelvis - IV Contrast Only In Process Unspecified. EDMS 22:35 No provider procedures requiring assistance completed. IV discontinued, intact, vc1 bleeding controlled, No redness/swelling at site. Pressure dressing applied. 22:36 Provided Education on: prescription medications. vc1 Administered Medications: 20:26 Drug: Dicyclomine IM 20 mg {Note: pt request med to be administered in deltoid gave 0.5 vc1 in right deltoid, half in left deltoid.} Route: IM; Site: Other; 20:28 Drug: NS 0.9% IV 1000 ml Route: IV; Rate: 1 bolus; Site: right antecubital; vc1 20:28 Drug: Famotidine IVP 20 mg Route: IVP; Site: right antecubital; vc1 20:28 Drug: Ondansetron IVP 4 mg Route: IVP; Site: right antecubital; vc1 Medication: 22:36 VIS not applicable for this client. vc1 Outcome: 22:19 Discharge ordered by MD. cp 22:36 Discharged to home ambulatory, with family, with significant other. vc1 22:36 Condition: good 22:36 Discharge instructions given to patient, significant other, Instructed on discharge instructions, follow up and referral plans. medication usage, Demonstrated understanding of instructions, follow-up care, medications, Prescriptions given X 2. 22:37 Patient left the ED. vc1 Signatures: Dispatcher [employer] EDMS Des Wilcox PA PA cp Garcia, Rubi rg4 Meng Guerrero RN RN bp Karen Junior RN RN vc1 Massiel Casey RN RN ko1 Corrections: (The following items were deleted from the chart) 18:42 18:41 Home Meds: None; bp bp
[2022-12-10 23:42] VITALS: TEMP 98.4
[2022-12-10 23:45] VITALS: BP 105/74; O2SAT 98
== END 2022-12-10 22:37 | disposition home or self-care (01) ==
LOC: ER 18:29
DX: R19.7 Diarrhea, unspecified (principal); R11.2 Nausea with vomiting, unspecified
CPT/HCPCS: 36415; 74177; 80053; 81001; 81025; 83690; 85025; 96372; 96374; 96375; 99284; J0500; J2405; J7030; Q9967